=== PATIENT | female | born 1970 | race Two or more races ===

== ENCOUNTER 2024-12-27 16:14 | Inpatient (IN) | payer OTHER ==
[~2024-12-27] VITALS: Ht 165.1 cm; Wt 95.7 kg
--- NOTE | 2024-12-27 17:43 | ECG ---
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
[2024-12-27] MEDS: SODIUM CHLORIDE 0.9% 1,000 ML IV ONE ×2 (18:04→21:47)
[2024-12-27] MEDS: ONDANSETRON HCL 4 MG/2 ML VIAL IV ONE (18:08)
[2024-12-27 18:10] LABS: Basophils # (auto) 0 10 ^3/uL (0-0.2); Basophils % (auto) 0.4 % (0.0-2.0); Eosinophils # (auto) 0.4 10 ^3/uL (0-0.8); Eosinophils % (auto) 3.5 % (0.0-7.0); Hematocrit 47.1 % (36.0-46.0); Hemoglobin 15.5 g/dL (12.2-16.2); Lymphocytes # (auto) 2.8 10 ^3/uL (0.4-5.4); Lymphocytes % (auto) 26.4 % (10.0-50.0); Mean Corpuscular Hemoglobin 27.7 pg (28.0-32.0); Mean Corpuscular Hgb Conc. 32.8 g/dL (32.0-36.0); Mean Corpuscular Volume 84.3 fL (80.0-100.0); Monocytes # (auto) 1.3 10 ^3/uL (0-1.3); Neutrophils # (auto) 6.2 10 ^3/uL (1.6-8.6); Neutrophils % (auto) 57.7 % (37.0-80.0); Nucleated Red Blood Cells % 0.4 %; Platelet Count (auto) 212 10^3/uL (140-450); Red Blood Cells 5.59 10^6/uL (4.0-5.20); Red Cell Distribution Width 16.6 % (11.8-14.3); White Blood Cell 10.8 10^3/uL (4.4-10.8)
[2024-12-27 18:28] LABS: Alanine Aminotransferase 22 U/L (7-40); Albumin 4.4 g/dL (3.2-4.8); Alkaline Phosphatase 103 U/L (46-116); Anion Gap 19.00001 (5-15); Aspartate Aminotransferase 18 U/L (13-40); BUN/Creatinine Ratio 14.9 (10.0-20.0); Calcium 9.4 mg/dL (8.7-10.4); Chloride 105 mmol/L (98-107); Magnesium 2.5 mg/dL (1.6-2.6)
--- NOTE | 2024-12-27 18:28 | ED.PDOC ---
GI ASSESSMENT HPI Comments 54y F who presents to the ED for chief complaint of nausea and vomiting - pt has been having nausea, vomiting and diarrhea for the past 3 days. - pt states her vomiting has been yellow in color - pt states over the past 2 days, has noted no vomiting or diarrhea episodes - pt states she started to get body aches and chills and came to the ED for further evaluation - pt denies any recent sick contacts or recent travel -pt denies any other symptoms at this time PMH: denies PSH: denies meds: denies allergies: nkda social history: denies ETOH, denies tobacco use, denies drug use HPI: Poor Historian. REVIEW OF SYSTEMS: CONSTITUTIONAL: Denies acute: fever, diaphoresis, chills, HEAD: Denies acute: headache, photophobia Eyes: Denies acute: Double vision, vision loss, eye pain, eye discharge. EARS: Denies acute: tinnitus, hearing loss, ear discharge, ear pain, THROAT: Denies acute: sore throat, swelling, difficulty swallowing , pain with swallowing, change in voice. NECK: Denies acute: neck pain, neck swelling, stiff neck. HEART: Denies acute : chest pain, palpitations, LUNGS: Denies acute: SOB, wheezing, cough, hemoptysis ABDOMEN: Denies acute: abdominal pain, , melena , hematemesis, hematochezia SKIN: Denies acute: rash, redness, lesions, itchiness. EXTREMITIES: Denies acute: calf pain, numbness, tingling, weakness, denies pain in extremity. Denies acute: Low back pain. Neuro: Denies acute: focal neurological deficit, motor or sensory focal neurological deficit, tremors, seizure like activity, confusion, dizziness, change in mental status, loss of bowel or bladder function, cauda equina like symptoms. : Denies acute: dysuria, hematuria, flank pain, increase in urinary frequency. PSYCH: Denies acute: hallucination, suicidal ideation, homicidal ideation. FEMALE: Denies acute: abnormal vaginal bleeding, foul odor, unusual discharge. PHYSICAL EXAM: General: --zxaw-yu-zvbyvyux------acute distress, awake and alert. Head: normocephalic, atraumatic. Neck: supple, trachea is midline, no swelling. Throat: Normal phonation. Eyes:, no erythema, no purulent discharge, no proptosis, no icterus. Heart: regular rate, regular rhythm, no significant murmur appreciated. Lungs: no apparent respiratory distress, Able to speak in full sentences. No wheezing, no rhonchi, no crackles. No stridors Clear to auscultation bilaterally. Abdomen: non tender to palpation, non distended, soft, no guarding, no rebound, + bowel sounds. Obese Neuro: Awake, Alert, oriented to name, self, situation, follows commands GCS=15. Speech is normal. Skin: no petechia, no purpura, no cyanosis, non-pale, not jaundice. Lower extremities: --no - Pitting edema no deformity, no focal swelling, no calf TTP. Makes eye contact. moves all four extremities. Face: no apparent facial droop. No nystagmus. No nuchal rigidity, Kernig's sign, Brudzinski's sign, no meningeal signs. ED COURSE: Critical care note by Dr. Huntley: Total time spent at least 35 minutes NOT including time for procedures. Obtaining history, review of pertinent medical records, multiple reassessment, documentation, review of labs and radiological imaging, Time Seen by MD: 18:44 Primary Care Provider: OOA Reviewed Notes: Nurses Notes, Medications, Allergies Allergies: Coded Allergies: NO KNOWN ALLERGIES (Unverified , 12/27/24) Home Meds Reported Medications Omeprazole (Omeprazole Dr) 20 Mg Cap, 1 CAP PO BID 12/28/24 Cholecalciferol (Gnp Vitamin D) 1,000 Unit Tab, 1 TAB PO DAILY 12/28/24 Information Source: Patient Mode of Arrival: Ambulatory Was a procedure done? 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 Indication: Hypotension Room prepared for procedure: Yes Process Controls Technician performed hand hygien: Yes Maximal sterile barrier precau: Mask/Eye shield, Sterile gown, Cap, Sterlie gloves, Large sterlie drape Skin Preparation: Chlorhexidine gluconate Skin preparation completely dr: Yes Insertion site: Left, Internal jugular Central line catheter type: [id number] dialysis Number of lumens: 3 Central line exchanged over a: Yes Antiseptic ointment applied to: Yes Post Assessment: Chest X-Ray, Proper placement Informed consent obtained: Yes Risks/benefits/alt described: Yes Notes Performed by Dr. Cesilia Lynch with resident Dr. Fortune and Dr. Fulton GI differential Dx Differential Diagnosis: Bowel Obstruction, Constipation, Gastritis/PUD, Gastroenteritis, Hernia, Hepatitis, Inflammatory BD, Porphyria, Trauma intraabdominal, UTI, Dehydration, Diabetes/ DKA, Electrolyte Imbalance, Food Poisoning, Bacterial, Parasitic, Viral, Hypovolemia, Renal Failure, Ischemic Bowel, Anemia, Other X-Ray, Labs, Meds, VS Vital Signs Date Time Temp Pulse Resp B/P (MAP) Pulse Ox O2 Delivery O2 Flow Rate FiO2 12/27/24 22:53 57/38 12/27/24 22:41 85 22 57/38 (44) 98 12/27/24 20:00 83 22 80/45 (57) 99 12/27/24 19:46 97.7 92 16 97/41 (59) 99 97.7 12/27/24 19:46 92 16 99 Room Air* 0 21 12/27/24 19:00 86 17 84/57 (66) 95 12/27/24 17:50 Room Air* 0 21 12/27/24 17:50 97.8 89 16 102/61 (75) 95 97.8 12/27/24 17:42 97 12/27/24 16:43 98.2 99 24 93/68 (76) 100 98.2 75/42 (53) Lab Test 12/27/24 22:45 12/27/24 21:45 12/27/24 21:16 12/27/24 20:45 Range/Units Sodium Level 137 136-145 mmol/L Potassium Level 4.8 3.5-5.1 mmol/L Chloride Level 114 H 98-107 mmol/L Carbon Dioxide Level < 10 *L 20-31 mmol/L Anion Gap 13.02786 5-15 Blood Urea Nitrogen 93 #*H 9-23 mg/dL Creatinine 7.69 H 0.550-1.02 mg/dL Glomerular Filtration Rate Calc 6 >90 mL/min BUN/Creatinine Ratio 12.1 10.0-20.0 Serum Glucose 90 74-106 mg/dL Calcium Level 8.4 L 8.7-10.4 mg/dL Urine Color Brown H Yellow Urine Clarity Ex.turbid Clear Urine pH 6.0 5.0-9.0 Urine Specific [place] 1.014 1.001-1.035 Urine Protein 2+ H Negative Urine Ketones Negative Negative Urine Blood 2+ H Negative /uL Urine Nitrite Negative Negative Urine Bilirubin Negative Negative Urine Urobilinogen Normal Negative mg/dL Urine Leukocyte Esterase 3+ Negative /uL Urine RBC 208 0 - 4 /hpf Urine WBC Clumps Present None Seen /hpf Urine Microscopic WBC 4972 H 0-5 /HPF Urine Squamous Epithelial Cells Few <5 /hpf Urine Bacteria Few H None Seen /hpf Urine Creatinine 226.91 H 30.0-125.0 mg/dL Urine Sodium 68 40-220 mmol/L Urine Glucose Normal Normal mg/dL Urine Total Protein 289.4 H 1-14 mg/dL Blood Gas Specimen Type Arterial Blood Gas Sample Site Right radial Blood Gas Patient Temperature 37.0 Arterial Blood Date Drawn Arterial Blood pH 7.168 *L 7.350-7.450 Arterial Blood Partial Pressure CO2 19.5 *L 32.0-45.0 mmHg Arterial Blood Partial Pressure O2 118.7 H 83.0-108.0 mmHg Arterial Blood HCO3 6.9 L 21.0-28.0 mmol/L Arterial Blood Oxygen Saturation 97.7 94.0-98.0 % Arterial Blood Base Excess -19.6 L -2.0-3.0 mmol/L Arterial Blood Oxyhemoglobin 96.8 94.0-98.0 % Arterial Blood Carboxyhemoglobin 0.2 L 0.5-1.5 % Arterial Blood Methemoglobin 0.7 0.0-1.5 % Sree Test Yes Blood Gas Total Hemoglobin 13.00 12.0-16.0 g/dL Blood Gas Modality Room air FiO2 % 21.0 Blood Gas Critical Value Read Back Yes Blood Gas Notified Whom Zoran fortune md Blood Gas Notified Time Blood Gas Notified By Pierre sargent rrt Troponin I High Sensitivity 4 </=34 ng/L Test 12/27/24 19:19 12/27/24 18:00 12/27/24 17:55 12/27/24 17:28 Range/Units Sodium Level 137 134 L 136-145 mmol/L Potassium Level 4.9 5.0 3.5-5.1 mmol/L Chloride Level 109 H 105 98-107 mmol/L Carbon Dioxide Level < 10 *L < 10 *L 20-31 mmol/L Anion Gap 18.47589 H 19.45043 H 5-15 Blood Urea Nitrogen 126 *H 134 *H 9-23 mg/dL Creatinine 8.60 H 9.01 H 0.550-1.02 mg/dL Glomerular Filtration Rate Calc 5 5 >90 mL/min BUN/Creatinine Ratio 14.7 14.9 10.0-20.0 Serum Glucose 105 126 H 74-106 mg/dL Calcium Level 8.7 9.4 8.7-10.4 mg/dL Total Bilirubin 0.2 0.2 0.2-1.0 mg/dL Aspartate Amino Transferase (AST) 15 18 13-40 U/L Alanine Aminotransferase (ALT) 16 22 7-40 U/L Alkaline Phosphatase 86 103 46-116 U/L Troponin I High Sensitivity 4 3 L </=34 ng/L Total Protein 7.1 8.0 5.7-8.2 g/dL Albumin 3.7 4.4 3.2-4.8 g/dL Influenza Type A Antigen Negative Negative Influenza Type B Antigen Negative Negative SARS-CoV-2 Antigen (Rapid) Negative NEGATIVE White Blood Count 10.8 4.4-10.8 10^3/uL Red Blood Count 5.59 H 4.0-5.20 10^6/uL Hemoglobin 15.5 12.2-16.2 g/dL Hematocrit 47.1 H 36.0-46.0 % Mean Corpuscular Volume 84.3 80.0-100.0 fL Mean Corpuscular Hemoglobin 27.7 L 28.0-32.0 pg Mean Corpuscular Hemoglobin Concent 32.8 32.0-36.0 g/dL Red Cell Distribution Width 16.6 H 11.8-14.3 % Platelet Count 212 140-450 10^3/uL Mean Platelet Volume 8.8 6.9-10.8 fL Neutrophils (%) (Auto) 57.7 37.0-80.0 % Lymphocytes (%) (Auto) 26.4 10.0-50.0 % Monocytes (%) (Auto) 12.0 0.0-12.0 % Eosinophils (%) (Auto) 3.5 0.0-7.0 % Basophils (%) (Auto) 0.4 0.0-2.0 % Neutrophils # (Auto) 6.2 1.6-8.6 10 ^3/uL Lymphocytes # (Auto) 2.8 0.4-5.4 10 ^3/uL Monocytes # (Auto) 1.3 0-1.3 10 ^3/uL Eosinophils # (Auto) 0.4 0-0.8 10 ^3/uL Basophils # (Auto) 0 0-0.2 10 ^3/uL Nucleated Red Blood Cells 0.4 % Lactic Acid Level 0.9 0.4-2.0 mmol/L Magnesium Level 2.5 1.6-2.6 mg/dL B-Type Natriuretic Peptide 9.41 0-100 pg/mL POC Glucose 125 H 70-106 mg/dl Microbiology Date/Time Source Procedure Growth Status 12/27/24 17:55 Blood Blood Culture - Preliminary NO GROWTH AFTER 24 HOURS OF INCUBATION. Resulted 12/27/24 17:40 Blood Blood Culture - Preliminary NO GROWTH AFTER 24 HOURS OF INCUBATION. Resulted Current Medications Medications (Trade) Dose Ordered Sig/Gaurav Route Start Time Stop Time Status Last Admin Norepinephrine Bitartrate 250 ml @ 3.75 mls/hr Q24H IV 12/27/24 22:45 12/28/24 11:24 DC 12/28/24 05:53 [place] [id number] Ph: [phone] DIAGNOSTIC IMAGING Diagnostic Imaging Report : [id number] Signed PATIENT: DARLING HANCT: [id number] UNIT: [id number] : 1970 LOC: ER ROOM / BED: / AGE / SEX: 54 / F ADM STATUS: REG ER SERVICE 8401 ORDERING PHYSICIAN: VERONICA HUNTLEY DO PROCEDURE(s): CXRP - CHEST PORTABLE REASON: hypotensive, n/v/d bodyaches ORDER NUMBER(s): [id number], ACCESSION NUMBER(s): [id number] CHEST RADIOGRAPH Indication: hypotensive, n/v/d bodyaches Technique: Single frontal view of the chest was obtained Comparison: None FINDINGS: Lungs are hypoventilatory but there are no infiltrates or effusions pulmonary vasculature normal. Heart is normal size but there is a widened mediastinum possibly due to mediastinal lipomatosis. IMPRESSION: 1. Widened mediastinum. Follow-up CT examination of the chest may be appropriate ATED BY: JACKSON IGNACIO MD DICTATED DATE/TIME: 12/27/241835 SIGNED BY: JACKSON IGNACIO MD SIGNED DATE/TIME: 12/27/241835 CC: Time of 1ST Reevaluation: 01:46 Reevaluation 1ST: Worsened Patient Education/Counseling: Diagnosis, Treatment Family Education/Counseling: No Family Present Comments Patient presented with the above HPI.--nausea vomiting and hypotension----workup was initiated. patient was found with the above mentioned diagnosis. the following medications were ordered: please refer to order lists of meds and tests obtained by myself Dr. Huntley. Patient ED course and VS have been stabilized. Patient has been reassessed in the ED and remained in a stable condition. Pertinent incidental findings were discussed with the patient and/or family. Patient/family voices understanding and is agreeable with plan. Patient has been observed in the ED adequate length of time to insure improvement/stability. Escalation of care considered: Consideration of escalation to observation or admission Patient was given multiple fluid boluses. Repeat BMP shows improvement of her creatinine. Nephrology was consulted. Patient was ADMITTED to the medicine team for further evaluation and treatment of their presentation. Patient was given antibiotics Flagyl for reported history of diarrhea. She was unable to provide us with a stool sample. All the reports of any imaging studies that were ordered by myself were reviewed by myself. Departure 1 Departure Time of Disposition: :46 (I, Dr. Lynch, was called to patient's bedside as patient was decompensating. Patient had with the acute renal failure secondary to staghorn calculi. Patient was empirically given fluids and antibiotics. Patient was started on vasopressors and I place a central line with the residents. Patient to be admitted to the ICU) Impression: Primary Impression: Acute renal failure Qualified Codes: N17.9 - Acute kidney failure, unspecified Additional Impression: Dehydration Disposition: ADMITTED INPATIENT Admit to: ICU Condition: Critical Discharged With: Self Critical Care Note Critical Care Time?: Yes Critical care comment: Acute renal failure Authorized and Performed by: Cesilia Lynch MD Total critical care time: Approximately 39 minutes Due to a high probability of clinically significant, life threatening de terioration, the patient required my highest level of preparedness to intervene emergently and I personally spent this critical care time directly and personally managing the patient. This critical care time included obtaining a history; examining the patient; pulse oximetry; ordering and review of studies; arranging urgent treatment with development of a management plan; evaluation of patient's response to treatment; frequent reassessment; and, discussions with other providers. This critical care time was performed to assess and manage the high probability of imminent, life-threatening deterioration that could result in multi-organ failure. It was exclusive of separately billable procedures and treating other patients and teaching time. Please see my other sections and the rest of the note for further information on patient assessment and treatment. I personally scribed for VERONICA HUNTLEY DO ([email or web address]) on 12/27/24 at 18:28. Electronically submitted by Bishnu Rivas ([email or web address]). I personally scribed for VERONICA HUNTLEY DO ([email or web address]) on 12/27/24 at 18:44. Electronically submitted by Bishnu Rivas ([email or web address]). I personally scribed for VERONICA HUNTLEY DO ([email or web address]) on 12/27/24 at 18:49. Electronically submitted by Bishnu Rivas ([email or web address]). VERONICA HUNTLEY DO December 27, 2024 18:28 CESILIA LYNCH MD December 28, 2024 01:48
[2024-12-27 18:30] LABS: Bilirubin, Total 0.2 mg/dL (0.2-1.0); Glucose 126 mg/dL (74-106); Sodium 134 mmol/L (136-145)
[2024-12-27 18:32] LABS: Blood Urea Nitrogen 134 mg/dL (9-23); Carbon Dioxide < 10 mmol/L (20-31)
--- NOTE | 2024-12-27 18:38 | DVH ---
CHEST RADIOGRAPH Indication: hypotensive, n/v/d bodyaches Technique: Single frontal view of the chest was obtained Comparison: None FINDINGS: Lungs are hypoventilatory but there are no infiltrates or effusions pulmonary vasculature normal. Hea rt is normal size but there is a widened mediastinum possibly due to mediastinal lipomatosis. IMPRESSION: 1. Widened mediastinum. Follow-up CT examination of the chest may be appropriate
[2024-12-27 18:41] LABS: COVID19 ANTIGEN SOFIA FIA NEGATIVE (NEGATIVE); Rapid Influenza A Negative (Negative); Rapid Influenza B Negative (Negative)
[2024-12-27] MEDS ORDERED: SODIUM CHLORIDE 0.9% 1,000 ML IV ONE (18:45)
[2024-12-27] MEDS ORDERED: SODIUM BICARB 8.4% 50Meq/50ml SYR Vial IV ONE (19:30)
[2024-12-27 19:46] VITALS: PULSE 92; RESP 16; O2SAT 99
[2024-12-27 20:19] LABS: Alanine Aminotransferase 16 U/L (7-40); Albumin 3.7 g/dL (3.2-4.8); Alkaline Phosphatase 86 U/L (46-116); Anion Gap 18.00001 (5-15); Aspartate Aminotransferase 15 U/L (13-40); BUN/Creatinine Ratio 14.7 (10.0-20.0); Calcium 8.7 mg/dL (8.7-10.4); Glucose 105 mg/dL (74-106); Potassium 4.9 mmol/L (3.5-5.1); Sodium 137 mmol/L (136-145); Total Protein 7.1 g/dL (5.7-8.2)
[2024-12-27 20:20] LABS: Chloride 109 mmol/L (98-107)
[2024-12-27 20:25] LABS: Bilirubin, Total 0.2 mg/dL (0.2-1.0); Blood Urea Nitrogen 126 mg/dL (9-23); Carbon Dioxide < 10 mmol/L (20-31)
--- NOTE | 2024-12-27 20:25 | DVH ---
INDICATION: vicki TECHNIQUE: Multiple real-time sonographic images of the kidneys and bladder were obtained. COMPARISON: None FINDINGS: The right kidney measures 9.1 cm in length, which is normal in size. There is normal echoge nicity of the right kidney. No hydronephrosis. Multiple calculi are noted in the right kidney no hydr onephrosis The left kidney measures 11.3 cm in length, which is normal in size. There is normal echogenicity of the left kidney. Multiple calculi are noted in the left kidney no hydronephrosis No large intraluminal masses are seen in the bladder. Prior to voiding the bladder volume measures vo lume 23 cc. Patient had no urge to void. IMPRESSION: 1. Multiple bilateral renal calculi no hydronephrosis. Consider CT abdomen and pelvis for further tal luation. 2. Echogenic avascular structure noted in the bladder with twinkle artifact. 3. Gallstones noted in the gallbladder
[2024-12-27] MEDS: metroNIDAZOLE 500MG/100ML 100 ML IV ONE (20:37)
--- NOTE | 2024-12-27 21:05 | DVH ---
Exam: CT CT AB PEL WO CON-NO ORAL OR IV History: hypotensive, n/v/d bodyaches Comparison Study: None available at time of dictation. TECHNIQUE: Multidetector CT of the abdomen was performed from lung bases to pubic symphysis. Imaging was performed without IV contrast. Axial, coronal and sagittal multiplanar reformats were obtained fr om the axial data set by the technologist. Radiation Dose Information: CT Dose: CTDI volume is 22.49 mGy. Dose-length product is 1395.23 mGy*cm FINDINGS: Evaluation of solid organs is limited due to lack of intravenous contrast use. Findings: Lung Bases: No acute or significant lung base finding. Normal heart size. No pleural or pericardial effusion. Liver: The liver is normal in size. No focal lesions. Gallbladder and Biliary Tree: Unremarkable Spleen: Unremarkable Pancreas: The pancreas is grossly normal in appearance. Adrenal Glands: Unremarkable Kidneys: Bilateral staghorn calculi. Double-J ureteral stent in place on the right. Proximal stent ap pears to be in place in the pelvis or proximal ureter. No hydronephrosis bilaterally. Correlate with renal function tests. Bladder: Grossly unremarkable for degree of distention. Bowel: The stomach is grossly normal in appearance. Small bowel and colon are normal in caliber and d istribution. The appendix is not visualized; however, no secondary findings of acute appendicitis id entified. Ascites: Absent Lymphadenopathy: No mesenteric, retroperitoneal or periportal lymphadenopathy. Abdominal Wall and Mesentery: Unremarkable. Vasculature: The visualized abdominal aorta is normal in size and caliber. Evaluation of abdominal a nd pelvic vessels is limited due to lack of intravenous contrast. Pelvic Organs: Unremarkable Musculoskeletal: No aggressive focal bony lesions, acute fractures or dislocation. Soft tissues: Unremarkable IMPRESSION: 1. Dense bilateral renal calculi without hydronephrosis. 2. Right ureteral stent in place. The proximal pigtail appears to be in the proximal ureter and ther e is no dilatation of the right renal pelvis. Correlate with renal function studies. Patient may be i n renal failure. 3. Cholelithiasis Radiation optimization: All CT scans at this facility use at least one of these dose optimization te chniques: automated exposure control mA and/or kV adjustment per patient size (includes targeted exa ms where dose is matched to clinical indication) or iterative reconstruction.
[2024-12-27 21:34] LABS: Base Excess -19.6 mmol/L (-2.0-3.0)
[2024-12-27 22:08] LABS: Creatinine, Urine 226.91 mg/dL (30.0-125.0)
[2024-12-27] MEDS: SODIUM BICARB 50mEq/50ml Vial 150 ML in D5W 5% 1,000 ML IV ONE (22:12)
[2024-12-27 22:22] LABS: Protein, Urine 289.4 mg/dL (1-14)
[2024-12-27 22:24] LABS: Urine Bacteria FEW /hpf (None Seen); Urine Blood 2+ /uL (Negative); Urine Clarity Ex.Turbid (Clear); Urine Color Brown (Yellow); Urine Protein, UAD 2+ (Negative); Urine Specific Gravity 1.014 (1.001-1.035); Urine Squamous Epithelial Cell FEW /hpf (<5); Urine Urobilinogen Normal (Negative); Urine WBC 4972 /HPF (0-5); Urine WBC Clumps PRESENT /hpf (None Seen)
[2024-12-27] MEDS: NOREPINEPHRINE 8 MG/250ML KIT 250 ML IV ONE (22:46)
[2024-12-27] MEDS: NOREPINEPHRINE 8 MG/250ML KIT 250 ML IV SCH (22:53)
--- NOTE | 2024-12-27 23:00 | DVHHPRES ---
History of Present Illness Resident Creating Document: ROBIN MCNAMARA RESIDENT History of Present Illness Mr. Hearn is 54-year-old female with no relevant PMH/PSH who presented to the ER with a chief complaint of intractable nausea, vomiting and diarrhea for the past 2 days. Patient reports progressively worsening nausea, vomiting and diarrhea for the past 3 days and she has been unable to eat or drink anything. she can not keep liquid or solid food down. Patient denies any abdominal pain, flank pain, dysuria, hematuria. She reports that her urine output is decreased but she thought it was because she is not drinking much fluids. Patient is A&O x3 but is confused as she is asking same questions repeatedly On arrival to the ER, patient's blood pressure was 84/57, pulse 99, respiratory rate 24, saturating 95 on room air CBC unremarkable, CMP showed anion gap 17, BUN 134, creatinine 9, serum bicarb less than 10 ABGs completed, showed pH 7.16, pCO2 19, bicarb 6.9 Kidney ultrasound showed bilateral renal calculi. Echogenic avascular structure in bladder. Gallstones. CT abdomen pending. Chest x-ray showed widened mediastinum. Patient received 2 L in his bolus. Blood pressure is still in 70 systolic, trending down. IV Levophed drip ordered. Patient has been admitted to ICU PMH/PSH: None Home medications: None Social history: Lives with , denies smoking/drinking/illicit drug use Family history: Sister has diabetes. No history of hemodialysis and family Patient seen and examined at the bedside. Smoke: No ALCOHOL: none Drugs: None Lives: with Family Review of Systems Gastrointestinal: Nausea, Vomiting, Abdominal Pain Neurological: Confusion Allergies: Coded Allergies: NO KNOWN ALLERGIES (Unverified , 12/27/24) Medications Current Medications Medications Dose Ordered Sig/Gaurav Route Start Time Stop Time Status Last Admin Dose Admin Norepinephrine Bitartrate 250 ml @ 3.75 mls/hr Q24H IV 12/27/24 22:45 12/27/24 22:53 3.75 MLS/HR Exam Vital Signs Vital Signs Date Time Temp Pulse Resp B/P (MAP) Pulse Ox O2 Delivery O2 Flow Rate FiO2 12/27/24 22:53 57/38 12/27/24 19:00 86 17 95 12/27/24 17:50 Room Air* 0 21 12/27/24 17:50 97.8 97.8 Exam Patient lying in bed, in no acute distress General: Well-built, afebrile, palor, mucosae are moist Cardiovascular: Regular S1 and S2. No murmurs, gallops or rubs. No JVD elevation. No pedal edema Respiratory: Normal B/L air entry on room air. Clear lung sounds on auscultation Abdomen: Soft, nontender, nondistended, normoactive bowel sounds, no rebound tenderness, no organomegaly, no masses Genitourinary: Deferred MSK/skin: Mobilizes 4 limbs. Skin is dry and warm Neurological: No motor, no sensitive deficits, normal speech. Pupils are isocoric and reactive. Psych/Mental Status: A/Ox3 but appears confused, asking repeatedly the same questions Labs/Xrays Labs Test 12/27/24 22:45 12/27/24 21:45 12/27/24 21:16 12/27/24 20:45 Range/Units Urine Color Brown H Yellow Urine Clarity Ex.turbid Clear Urine pH 6.0 5.0-9.0 Urine Specific [place] 1.014 1.001-1.035 Urine Protein 2+ H Negative Urine Ketones Negative Negative Urine Blood 2+ H Negative /uL Urine Nitrite Negative Negative Urine Bilirubin Negative Negative Urine Urobilinogen Normal Negative mg/dL Urine Leukocyte Esterase 3+ Negative /uL Urine RBC 208 0 - 4 /hpf Urine WBC Clumps Present None Seen /hpf Urine Microscopic WBC 4972 H 0-5 /HPF Urine Squamous Epithelial Cells Few <5 /hpf Urine Bacteria Few H None Seen /hpf Urine Creatinine 226.91 H 30.0-125.0 mg/dL Urine Sodium 68 40-220 mmol/L Urine Glucose Normal Normal mg/dL Urine Total Protein 289.4 H 1-14 mg/dL Blood Gas Specimen Type Arterial Blood Gas Sample Site Right radial Blood Gas Patient Temperature 37.0 Arterial Blood Date Drawn Arterial Blood pH 7.168 *L 7.350-7.450 Arterial Blood Partial Pressure CO2 19.5 *L 32.0-45.0 mmHg Arterial Blood Partial Pressure O2 118.7 H 83.0-108.0 mmHg Arterial Blood HCO3 6.9 L 21.0-28.0 mmol/L Arterial Blood Oxygen Saturation 97.7 94.0-98.0 % Arterial Blood Base Excess -19.6 L -2.0-3.0 mmol/L Arterial Blood Oxyhemoglobin 96.8 94.0-98.0 % Arterial Blood Carboxyhemoglobin 0.2 L 0.5-1.5 % Arterial Blood Methemoglobin 0.7 0.0-1.5 % Sree Test Yes Blood Gas Total Hemoglobin 13.00 12.0-16.0 g/dL Blood Gas Modality Room air FiO2 % 21.0 Blood Gas Critical Value Read Back Yes Blood Gas Notified Whom Zoran paniagua md Blood Gas Notified Time Blood Gas Notified By Pierre sargent rrt Troponin I High Sensitivity 4 </=34 ng/L Test 12/27/24 19:19 12/27/24 18:00 12/27/24 17:55 12/27/24 17:28 Range/Units Total Bilirubin 0.2 0.2-1.0 mg/dL Aspartate Amino Transferase (AST) 15 13-40 U/L Alanine Aminotransferase (ALT) 16 7-40 U/L Alkaline Phosphatase 86 46-116 U/L Total Protein 7.1 5.7-8.2 g/dL Albumin 3.7 3.2-4.8 g/dL Influenza Type A Antigen Negative Negative Influenza Type B Antigen Negative Negative SARS-CoV-2 Antigen (Rapid) Negative NEGATIVE White Blood Count 10.8 4.4-10.8 10^3/uL Red Blood Count 5.59 H 4.0-5.20 10^6/uL Hemoglobin 15.5 12.2-16.2 g/dL Hematocrit 47.1 H 36.0-46.0 % Mean Corpuscular Volume 84.3 80.0-100.0 fL Mean Corpuscular Hemoglobin 27.7 L 28.0-32.0 pg Mean Corpuscular Hemoglobin Concent 32.8 32.0-36.0 g/dL Red Cell Distribution Width 16.6 H 11.8-14.3 % Platelet Count 212 140-450 10^3/uL Mean Platelet Volume 8.8 6.9-10.8 fL Neutrophils (%) (Auto) 57.7 37.0-80.0 % Lymphocytes (%) (Auto) 26.4 10.0-50.0 % Monocytes (%) (Auto) 12.0 0.0-12.0 % Eosinophils (%) (Auto) 3.5 0.0-7.0 % Basophils (%) (Auto) 0.4 0.0-2.0 % Neutrophils # (Auto) 6.2 1.6-8.6 10 ^3/uL Lymphocytes # (Auto) 2.8 0.4-5.4 10 ^3/uL Monocytes # (Auto) 1.3 0-1.3 10 ^3/uL Eosinophils # (Auto) 0.4 0-0.8 10 ^3/uL Basophils # (Auto) 0 0-0.2 10 ^3/uL Nucleated Red Blood Cells 0.4 % Lactic Acid Level 0.9 0.4-2.0 mmol/L Magnesium Level 2.5 1.6-2.6 mg/dL B-Type Natriuretic Peptide 9.41 0-100 pg/mL POC Glucose 125 H 70-106 mg/dl Assessment/Plan Assessment/Plan Hypovolemic shock requiring pressor support Probable uremic encephalopathy Acute renal failure, hemodynamically mediated Anion gap metabolic acidosis secondary to uremia Bilateral nephrolithiasis Acute cystitis secondary to ? Staghorn calculi ? Right ureteral stent Gastroenteritis, likely infectious Hyponatremia Cholelithiasis Plan: 2 L IV NS bolus administered, patient is still hypotensive, IV Levophed drip started FENA 1.9% intermediate, follow up with urine and serum osmolality UA shows 2+ blood, 2+ protein, 3+ leukocyte esterase, WBC clumps, few bacteria Nephrology consulted Kidney ultrasound showed bilateral renal calculi. Echogenic avascular structure in bladder. Gallstones. CT abdomen pending. Chest x-ray showed widened mediastinum. CT abdomen showed Dense bilateral renal calculi without hydronephrosis. Right ureteral stent in place. The proximal pigtail appears to be in the proximal ureter and there is no dilatation of the right renal pelvis. Correlate with renal function studies. Patient may be in renal failure.Cholelithiasis ABGs completed, showed pH 7.16, pCO2 19, bicarb 6.9 IV ceftriaxone and IV metronidazole Stool studies and C diff pending Tamsulosin 0.4 mg daily Chest x-ray shows widened mediastinum consider chest CT scan with IV contrast Pantoprazole 40 mg IV daily Lovenox 40 mg sc daily Patient has left IJ CVC placed on 12/28 Patient admitted to ICU Plan discussed with patient in which all questions have been answered Goals of care discussed for more than 28 minutes, full code status Case discussed with Dr. Castaneda Plan discussed with: Patient My Orders Orders - ROBIN MCNAMARA Procedure Category Date Status Time Norepinephrine 8 PHA 12/27/24 In Process Mg/250ml Kit 22:45 Date of Service: December 27, 2024 Billing Provider: ALMA CASTANEDA MD Common Visit Codes: [id number] INP/OBS CARE (HIGH) ROBIN MCNAMARA December 27, 2024 23:00
[2024-12-27 23:36] LABS: Potassium 4.8 mmol/L (3.5-5.1); Sodium 137 mmol/L (136-145)
[2024-12-27 23:38] LABS: Anion Gap 13.00001 (5-15); Chloride 114 mmol/L (98-107)
[2024-12-27 23:39] LABS: Carbon Dioxide < 10 mmol/L (20-31)
[2024-12-27 23:40] LABS: Calcium 8.4 mg/dL (8.7-10.4)
[2024-12-27 23:43] LABS: BUN/Creatinine Ratio 12.1 (10.0-20.0); Glucose 90 mg/dL (74-106)
[2024-12-27 23:46] LABS: Blood Urea Nitrogen 93 mg/dL (9-23)
[2024-12-28] VITALS (84 sets, daily range): BP systolic 79–126; BP diastolic 32–93; PULSE 68–108; RESP 12–29; TEMP 98–98.7; O2SAT 97–100
[2024-12-28 00:52] LABS: Partial Thromboplastin Time 25.4 SEC (24.5-34.5); Prothrombin Time 10.6 sec (9.3-11.8)
[2024-12-28 01:15] LABS: Magnesium 2.2 mg/dL (1.6-2.6)
[2024-12-28 01:20] LABS: Phosphorus 6.6 mg/dL (2.4-5.1)
[2024-12-28] MEDS: TAMSULOSIN HYDROCHLORIDE 0.4 MG CAP PO ONE (02:19)
[2024-12-28] MEDS: PANTOPRAZOLE 40 MG/10 ML VIAL INJ IV ONE (02:33)
--- NOTE | 2024-12-28 03:18 | DVH ---
CHEST RADIOGRAPH Indication: status post central line placement Technique: Single frontal view of the chest was obtained Comparison: XY CHEST PORTABLE on DOS: 12/27/24 IMPRESSION: Left central venous catheter tip in the region of the superior vena cava. The lungs appear clear wit hout focal airspace opacity, effusion, or pneumothorax.
[2024-12-28] MEDS: cefTRIAXone 1GM/50ML D5W 50 ML IV ONE (03:33)
[2024-12-28] MEDS ORDERED: OMEP1CAP70 PO (03:44)
[2024-12-28] MEDS ORDERED: CHOL1TAB30 PO (03:44)
[2024-12-28] MEDS: metroNIDAZOLE 500MG/100ML 100 ML IV ONE (04:15)
[2024-12-28 05:10] LABS: Base Excess -18.9 mmol/L (-2.0-3.0)
[2024-12-28] MEDS: metroNIDAZOLE 500MG/100ML 100 ML IV SCH (05:59)
[2024-12-28] MEDS: SODIUM BICARB 8.4% 50Meq/50ml SYR Vial IV ONE (06:04)
[2024-12-28] MEDS: SODIUM CHLORIDE 0.9% 500 ML IV ONE (07:30)
[2024-12-28] MEDS: PHENYLEPHRINE IV 250 ML IV SCH (08:00)
[2024-12-28] MEDS: PHENYLEPHRINE IV 250 ML IV ONE (08:21)
[2024-12-28] MEDS: cefTRIAXone 1GM/50ML D5W 50 ML IV SCH (08:21)
[2024-12-28 09:34] LABS: Basophils # (auto) 0 10 ^3/uL (0-0.2); Basophils % (auto) 0.3 % (0.0-2.0); Eosinophils # (auto) 0.5 10 ^3/uL (0-0.8); Eosinophils % (auto) 5.3 % (0.0-7.0); Hematocrit 38.7 % (36.0-46.0); Hemoglobin 12.7 g/dL (12.2-16.2); Lymphocytes # (auto) 1.7 10 ^3/uL (0.4-5.4); Lymphocytes % (auto) 20.4 % (10.0-50.0); Mean Corpuscular Hemoglobin 27.2 pg (28.0-32.0); Mean Corpuscular Hgb Conc. 32.9 g/dL (32.0-36.0); Mean Corpuscular Volume 82.8 fL (80.0-100.0); Monocytes % (auto) 11.7 % (0.0-12.0); Neutrophils # (auto) 5.3 10 ^3/uL (1.6-8.6); Neutrophils % (auto) 62.3 % (37.0-80.0); Nucleated Red Blood Cells % 0.1 %; Platelet Count (auto) 169 10^3/uL (140-450); Red Blood Cells 4.67 10^6/uL (4.0-5.20); Red Cell Distribution Width 15.8 % (11.8-14.3); White Blood Cell 8.5 10^3/uL (4.4-10.8)
[2024-12-28 09:59] LABS: Alanine Aminotransferase 11 U/L (7-40); Albumin 3.4 g/dL (3.2-4.8); Alkaline Phosphatase 72 U/L (46-116); Anion Gap 17 (5-15); BUN/Creatinine Ratio 14.6 (10.0-20.0); Sodium 141 mmol/L (136-145); Total Protein 6.5 g/dL (5.7-8.2)
[2024-12-28 10:01] LABS: Aspartate Aminotransferase 9 U/L (13-40); Bilirubin, Total 0.3 mg/dL (0.2-1.0); Calcium 8.3 mg/dL (8.7-10.4); Carbon Dioxide 11 mmol/L (20-31); Chloride 113 mmol/L (98-107); Glucose 227 mg/dL (74-106)
[2024-12-28 10:05] LABS: Blood Urea Nitrogen 100 mg/dL (9-23)
[2024-12-28] MEDS: ENOXAPARIN SOD 40 MG/0.4 ML SYRINGE SC SCH (10:49)
[2024-12-28] MEDS: SODIUM BICARB 50mEq/50ml Vial 150 ML in D5W 5% 1,000 ML IV ONE (10:50)
[2024-12-28] MEDS: PANTOPRAZOLE 40 MG/10 ML VIAL INJ IV SCH (10:50)
[2024-12-28] MEDS: NOREPINEPHRINE BITARTRATE 32 MG in SODIUM CHL 0.9% 218 ML IV SCH (12:30)
--- NOTE | 2024-12-28 14:02 | DVHCONRES ---
Date Seen: December 28, 2024 Resident Creating Document: SABA TITUS RESIDENT Referring Physician Reason for Consultation ISIDRO History of Present Illness 64-year-old female patient with past medical history of staghorn calculi, H pylori (3 months ago), type 2 obesity, prediabetes, tuberculosis, recurrent UTIs who presented to the emergency department with a chief complaint of nausea vomiting and diarrhea for the past 2 days, she also had an episode of diarrhea 2 weeks ago. Nephrology was consulted because of an acute episode of ISIDRO, further evaluation demonstrated presence of bilateral staghorn calculi on CT scan and the presence of right ureteral stent with the proximal pigtail appears to be in the proximal ureter and there is no dilation of the right renal pelvis, patient has a lithotripsy intervention for years ago. During her stay in the ED she presented a possible episode of urinary retention as she reports noted to had a good amount of urine passage after Marie catheterization, this detail to be considered on discharge regarding the consideration of continuing Marie catheter. Patient was started on fluids D5W 5% dextrose with sodium bicarbonate at 100 mL/hour for 1 more day or 2 as metabolic acidosis improve. urology lesion was ordered further management on the bilateral staghorn calculi. We are going to continue monitoring kidney function, metabolic acidosis, urine output. Past Medical History staghorn calculi, H pylori (3 months ago), type 2 obesity, prediabetes, tuberculosis, recurrent UTIs Family History: Diabetes mellitus (DAD AND SISTER) G8 FATHER G8 SISTER Allergies: Coded Allergies: NO KNOWN ALLERGIES (Unverified , 12/27/24) Home Meds Reported Medications Omeprazole (Omeprazole Dr) 20 Mg Cap, 1 CAP PO BID 12/28/24 Cholecalciferol (Gnp Vitamin D) 1,000 Unit Tab, 1 TAB PO DAILY 12/28/24 Current Medications Current Medications Medications (Trade) Dose Ordered Sig/Gaurav Route PRN Reason Start Time Stop Time Status Last Admin Norepinephrine Bitartrate 250 ml @ 3.75 mls/hr Q24H IV 12/27/24 22:45 12/28/24 11:24 DC 12/28/24 05:53 Ceftriaxone Sodium 50 ml @ 100 mls/hr DAILY@09 IV 12/28/24 09:00 12/28/24 08:21 Metronidazole 100 ml @ 100 mls/hr Q8HR IV 12/28/24 06:00 12/28/24 05:59 Tamsulosin HCl (Flomax) 0.4 mg QPM PO 12/28/24 18:00 12/28/24 12:08 DC Pantoprazole Sodium (Protonix) 40 mg DAILY IV 12/28/24 10:00 12/28/24 10:50 Enoxaparin Sodium (Lovenox) 40 mg DAILY SC 12/28/24 10:00 12/28/24 10:49 Phenylephrine HCl 250 ml @ 30 mls/hr Q8H20M IV 12/28/24 07:45 12/28/24 12:30 Norepinephrine Bitartrate 32 mg/ Sodium Chloride 250 ml @ 0.938 mls/ hr Q24H IV 12/28/24 11:30 12/28/24 12:30 Sodium Bicarbonate 150 ml/Dextrose 1,150 ml @ 100 mls/hr [id number] IV 12/28/24 22:15 Review of Systems Constitutional: No: Fever, Chills, Sweats, Weakness, Malaise, Other Eyes: No: Pain, Vision change, Conjunctivae inflammation, Eyelid inflammation, Other, Redness ENT: No: Ear pain, Ear discharge, Nose pain, Nose discharge, Nose congestion, Mouth pain, Mouth swelling, Throat pain, Throat swelling, Other Respiratory: No Wheezing, Hemoptysis, Pleuritic Pain, Sputum, Wheezing, Other Cardiovascular: No: Chest Pain, Palpitations, Orthopnea, Paroxysmal Noc. Dyspnea, Edema, Lt Headedness, Other Gastrointestinal: No: Nausea, Vomiting, Abdominal Pain, Diarrhea, Constipation, Melena, Hematochezia, Other Musculoskeletal: No: other, neck pain, shoulder pain, arm pain, back pain, hand pain, leg pain, foot pain Neurological:; No: Weakness, Numbness, Incoordination, Change in speech, Confusion, Seizures Vital Signs Vital Signs Date Time Temp Pulse Resp B/P (MAP) Pulse Ox O2 Delivery O2 Flow Rate FiO2 12/28/24 12:30 96/59 12/28/24 12:30 96 21 99 12/28/24 12:00 98.3 98.3 12/28/24 08:00 Nasal Cannula* 2 28 Physical Exam Examination General Appearance: Alert, Oriented X3, Cooperative, No acute distress Respiratory: Clear to auscultation, Normal air movement Cardiovascular: Regular rate, Normal S1, Normal S2 Abdominal: Normal bowel sounds Extremities: No cyanosis, No edema, Normal pulses, No tenderness/swelling Skin: No rashes, No breakdown Neuro: Normal gait, Normal speech, Strength at 5/5 X4 ext, Normal tone, Sensation intact, Cranial nerves 3-12 NL, Reflexes 2+ Psych/Mental Status: Mental status NL, Mood NL Labs/Diagnostic Data Labs Test 12/28/24 09:19 12/28/24 04:55 12/27/24 23:57 12/27/24 21:45 Range/Units White Blood Count 8.5 4.4-10.8 10^3/uL Red Blood Count 4.67 4.0-5.20 10^6/uL Hemoglobin 12.7 # 12.2-16.2 g/dL Hematocrit 38.7 # 36.0-46.0 % Mean Corpuscular Volume 82.8 80.0-100.0 fL Mean Corpuscular Hemoglobin 27.2 L 28.0-32.0 pg Mean Corpuscular Hemoglobin Concent 32.9 32.0-36.0 g/dL Red Cell Distribution Width 15.8 H 11.8-14.3 % Platelet Count 169 140-450 10^3/uL Mean Platelet Volume 8.6 6.9-10.8 fL Neutrophils (%) (Auto) 62.3 37.0-80.0 % Lymphocytes (%) (Auto) 20.4 10.0-50.0 % Monocytes (%) (Auto) 11.7 0.0-12.0 % Eosinophils (%) (Auto) 5.3 0.0-7.0 % Basophils (%) (Auto) 0.3 0.0-2.0 % Neutrophils # (Auto) 5.3 1.6-8.6 10 ^3/uL Lymphocytes # (Auto) 1.7 0.4-5.4 10 ^3/uL Monocytes # (Auto) 1.0 0-1.3 10 ^3/uL Eosinophils # (Auto) 0.5 0-0.8 10 ^3/uL Basophils # (Auto) 0 0-0.2 10 ^3/uL Nucleated Red Blood Cells 0.1 % Sodium Level 141 136-145 mmol/L Potassium Level 4.0 3.5-5.1 mmol/L Chloride Level 113 H 98-107 mmol/L Carbon Dioxide Level 11 L 20-31 mmol/L Anion Gap 17 H 5-15 Blood Urea Nitrogen 100 *H 9-23 mg/dL Creatinine 6.84 H 0.550-1.02 mg/dL Glomerular Filtration Rate Calc 7 >90 mL/min BUN/Creatinine Ratio 14.6 10.0-20.0 Serum Glucose 227 H 74-106 mg/dL Calcium Level 8.3 L 8.7-10.4 mg/dL Magnesium Level 2.0 1.6-2.6 mg/dL Total Bilirubin 0.3 0.2-1.0 mg/dL Aspartate Amino Transferase (AST) 9 L 13-40 U/L Alanine Aminotransferase (ALT) 11 7-40 U/L Alkaline Phosphatase 72 46-116 U/L Total Protein 6.5 5.7-8.2 g/dL Albumin 3.4 3.2-4.8 g/dL Free Thyroxine (T4) Calculated 1.07 0.89-1.76 ng/dL Blood Gas Specimen Type Arterial Blood Gas Sample Site Right radial Blood Gas Patient Temperature 37.0 Arterial Blood Date Drawn [id number] Arterial Blood pH 7.186 *L 7.350-7.450 Arterial Blood Partial Pressure CO2 19.6 *L 32.0-45.0 mmHg Arterial Blood Partial Pressure O2 108.5 H 83.0-108.0 mmHg Arterial Blood HCO3 7.3 L 21.0-28.0 mmol/L Arterial Blood Oxygen Saturation 97.2 94.0-98.0 % Arterial Blood Base Excess -18.9 L -2.0-3.0 mmol/L Arterial Blood Oxyhemoglobin 96.3 94.0-98.0 % Arterial Blood Carboxyhemoglobin 0.2 L 0.5-1.5 % Arterial Blood Methemoglobin 0.7 0.0-1.5 % Sree Test Yes Blood Gas Total Hemoglobin 13.90 12.0-16.0 g/dL Blood Gas Modality Room air FiO2 % 21.0 Blood Gas Critical Value Read Back Yes Blood Gas Notified Whom Dr. bautista Blood Gas Notified Time [id number] Blood Gas Notified By Jesus licea Prothrombin Time 10.6 9.3-11.8 sec Prothrombin Time INR 1.00 0.9-1.15 Activated Partial Thromboplast Time 25.4 24.5-34.5 SEC Hemoglobin A1c 5.7 <5.7 % A1C Phosphorus Level 6.6 H 2.4-5.1 mg/dL Vitamin B12 Level > 4000 H 211-911 pg/mL Vitamin D 25-Hydroxy 46.9 30.0-100 ng/mL Thyroid Stimulating Hormone (TSH) 0.11 L 0.55-4.78 uIU/mL Parathyroid Hormone (Intact) 100.3 H 18.4-80.1 pg/mL Urine Color Brown H Yellow Urine Clarity Ex.turbid Clear Urine pH 6.0 5.0-9.0 Urine Specific [place] 1.014 1.001-1.035 Urine Protein 2+ H Negative Urine Ketones Negative Negative Urine Blood 2+ H Negative /uL Urine Nitrite Negative Negative Urine Bilirubin Negative Negative Urine Urobilinogen Normal Negative mg/dL Urine Leukocyte Esterase 3+ Negative /uL Urine RBC 208 0 - 4 /hpf Urine WBC Clumps Present None Seen /hpf Urine Microscopic WBC 4972 H 0-5 /HPF Urine Squamous Epithelial Cells Few <5 /hpf Urine Bacteria Few H None Seen /hpf Urine Creatinine 226.91 H 30.0-125.0 mg/dL Urine Sodium 68 40-220 mmol/L Urine Glucose Normal Normal mg/dL Urine Total Protein 289.4 H 1-14 mg/dL Test 12/27/24 20:45 12/27/24 18:00 12/27/24 17:55 12/27/24 17:28 Range/Units Troponin I High Sensitivity 4 </=34 ng/L Influenza Type A Antigen Negative Negative Influenza Type B Antigen Negative Negative SARS-CoV-2 Antigen (Rapid) Negative NEGATIVE Lactic Acid Level 0.9 0.4-2.0 mmol/L B-Type Natriuretic Peptide 9.41 0-100 pg/mL POC Glucose 125 H 70-106 mg/dl Assessment Assessment: Acute kidney injury on chronic kidney disease/ ATN in the setting of septic shock likely due to UTI///plus severe nausea vomiting diarrhea Chronic Bilateral large staghorn calculi status post 4 lithotripsy interventions Right ureteral s/p double-J ureteral stent in place Anion gap metabolic acidosis Hyponatremia, resolving Uremic encephalopathy ruled out Septic shock requiring pressor support likely secondary to UTI History of H pylori history of tuberculosis Cholelithiasis based on abdominal CT scan Type 2 obesity Subclinical hypothyroidism Plan: Continue bicarbonate drip No need for hemodialysis for now , we will monitor on current treatment response Urology consultation, pending Clear liquid diet Keep Marie catheter Strict I&Os CBC CMP tomorrow morning Discontinue tamsulosin Antibiotics, sedatives and pressors per hospitalist Case discussed with Dr. Diego Code status: Full code Addendum Patient seen and examined, plan discussed with resident. Agree with above, we will follow closely Plan discussed with: Patient SABA TITUS December 28, 2024 14:02 LUCY DIEGO MD December 28, 2024 16:06
--- NOTE | 2024-12-28 14:57 | DVHPNRES ---
Progress Note Date Seen: December 28, 2024 Resident Creating Document: MARKIE SHOOK RESIDENT Has the PT tested + for MRSA If YES, has PT been informed?: No Medical Necessity Reason Pt with a Central, PICC or Fol: Yes The following are medically ne: Central Line, Kenny Catheter Reason for kenny catheter: Strict I&O Subjective Review of Systems This is a 62-year-old female with past medical history of prediabetes, hypertension, staghorn calculi, H pylori three months ago, tuberculosis, who presented to the ED with chief complaint of generalized weakness associated with nausea, vomiting and diarrhea. The patient states that one week ago she started developing nausea vomiting and diarrhea after having a meal and since three days ago she started feeling generalized weakness and fatigue. Upon admission, blood pressure was in the lower side at 84/57 patient was slightly tachycardic. BNP was showing a creatinine of 7.69 and BUN of 93. Initial ABG was showing severe metabolic acidosis with respiratory compensation per bolivar formula. CT of the abdomen is showing dense bilateral staghorn calculi without hydronephrosis and a right ureteral stent in place. Renal ultrasound was also showing multiple bilateral renal calculi with no hydronephrosis. Patient was coursing with urosepsis for which was started on Levophed and phenylephrine. Patient was also started on IV Flagyl and ceftriaxone. Nephrology was consulted and the patient was admitted for further assessment and management. Patient seen and examined at bedside. Patient is is currently on pressors maximized on Levophed and phenylephrine at 65. Patient was on nasal cannula at [address] scan of the abdomen was reviewed which showed bilateral staghorn calculi without hydronephrosis. Nephrology is on board and recommended to start fluids D5W 5% dextrose with sodium bicarbonate at 100 cc/hour for one more day and recheck ABG to monitor metabolic acidosis. Urology was consulted for bilateral staghorn calculi. The patient tried lithotripsy before but was unsuccessful. We will continue the patient on IV Flagyl and ceftriaxone at this time and we will monitor kidney function. Patient has negative bilateral costovertebral angle tenderness, denies abdominal tenderness, chest pain, shortness of breath or any other symptoms. Patient just reports feeling weak and fatigued. ROS: Constitutional: Reports generalized weakness and fatigue. Denies weight loss, fever and chills. HEENT: Denies changes in vision and hearing. Respiratory: Denies shortness of breath and cough Cardiovascular: Denies chest discomfort or palpitations GI: Denies abdominal pain, nausea, vomiting and diarrhea. : Denies dysuria and urinary frequency. Musculoskeletal: Denies myalgias and joint pain Skin: Denies rash and pruritus. Neurological: Denies dizziness, headache, vision or hearing problems Objective vital signs Vital Sign Date Time Temp Pulse Resp B/P (MAP) Pulse Ox O2 Delivery O2 Flow Rate FiO2 12/28/24 12:30 96/59 12/28/24 12:30 96 21 99 12/28/24 12:00 98.3 98.3 12/28/24 08:00 Nasal Cannula* 2 28 Total Intake and Output 12/27/24 12/27/24 12/28/24 15:00 23:00 07:00 Intake Total 405.00 ml Output Total 950 ml Balance -545.00 ml medications Current Medications Medications Dose Ordered Sig/Gaurav Route Start Time Stop Time Status Last Admin Dose Admin Ceftriaxone Sodium 50 ml @ 100 mls/hr DAILY@09 IV 12/28/24 09:00 12/28/24 08:21 100 MLS/HR Metronidazole 100 ml @ 100 mls/hr Q8HR IV 12/28/24 06:00 12/28/24 14:04 100 MLS/HR Pantoprazole Sodium 40 mg DAILY IV 12/28/24 10:00 12/28/24 10:50 40 MG Enoxaparin Sodium 40 mg DAILY SC 12/28/24 10:00 12/28/24 10:49 40 MG Phenylephrine HCl 250 ml @ 30 mls/hr Q8H20M IV 12/28/24 07:45 12/28/24 12:30 67.5 MLS/HR Norepinephrine Bitartrate 32 mg/ Sodium Chloride 250 ml @ 0.938 mls/ hr Q24H IV 12/28/24 11:30 12/28/24 12:30 14.063 MLS/HR Sodium Bicarbonate 150 ml/Dextrose 1,150 ml @ 100 mls/hr [id number] IV 12/28/24 22:15 Examination Physical examination: General: Patient alert and oriented in person, place and time. Patient following commands. HEENT: Normocephalic, atraumatic, moist mucous membranes. Central line in place Respiratory/pulmonary: Clear lungs bilaterally, no associated crackles or wheezes. Cardiovascular: Normal heart sounds S1 and S2 with no associated murmurs Abdomen: Abdomen nondistended, there is no pain to palpation in any of the abdominal quadrants, no palpable masses. Kenny's in place Extremities: There is no peripheral edema present at the lower extremities. Peripheral Pulses: 3+ Radial (R). 3+ Radial (L). 3+ Dorsalis pedis (R). 3+ Dorsalis pedis(L) Skin: No rashes or pruritus, there is no sacral edema present at this time. Neurological: Intact cranial nerves with no focal neurologic deficits laboratory and microbiology Laboratory Tests 12/28/24 09:19 Test 12/28/24 09:19 Range/Units Serum Glucose 227 H 74-106 mg/dL Labs and/or images reviewed: Labs reviewed by me, Image(s) reviewed by me Problem List/Assessment/Plan Problem List/Assessment/Plan Assessment/plan Septic shock requiring pressors due to acute cystitis/pyelonephritis due to staghorn calculi Acute metabolic (uremic) encephalopathy Acute renal failure likely due to bilateral staghorn calculi Acute anion gap metabolic acidosis with respiratory compensation Right ureteral stent, status post double-J ureteral stent placement Hyponatremia, resolved Acute cholelithiasis without cholecystitis History of H pylori, history of tuberculosis Gastroenteritis, likely infectious, resolved Type 2 diabetes mellitus, on prediabetes range Plan -chest x-ray was grossly unremarkable -CT of the abdomen showed bilateral dense staghorn calculi without hydronephrosis, there was a right ureteral stent in place. There was cholelithiasis without cholecystitis -continue IV ceftriaxone and Flagyl -currently maximized on Levophed, phenylephrine at 65 -nephrology on board recommended to start fluids D5W 5% dextrose with sodium bicarbonate at 100 cc/hour. -Consulted urology for staghorn renal calculi -Discontinue tamsulosin 0.4 mg daily -hemoglobin A1c was 5.7% currently on prediabetes range. No need of medications at this time -Will continue to monitor kidney function, no need for HD at this time -keep Kenny catheter and monitor strict in's and out Goals of care discussed with the patient and at bedside for 20min, FULL CODE 120 minutes of critical care time Plan discussed with Dr. Dumont Plan discussed with: Patient, Spouse, Other (RN) My Orders My Orders Orders - MARKIE SHOOK RESIDENT Procedure Category Date Status Time Sodium Bicarb PHA 12/28/24 In Process 50meq/50ml Vial 10:45 Clear Liq Diet DIET 12/28/24 Transmitted Lunch Critical Care Time (mins): 120 Addendum Addendum Addendum I was physically present for the pereira portions of the service provided to patient by THE RESIDENT. I have reviewed the documentation, discussed the case with resident and agree with the resident's documentation except as noted. Also the patient's clinical case was discussed with the patient's nurse. This medical document was created using an electronic medical record system with computerized dictation system. Although this document has been carefully reviewed, there might still be some phonetic and typographical errors. These areas are purely typographical due to imperfections of the software programs, and do not reflect any compromise in the patient's medical care. Late signature. Date of Service: December 28, 2024 Billing Provider: DESI DUMONT MD Common Visit Codes: 69795-OTZKSDLA CARE 30-74 MIN (120 minutes), 23795-BSKBWAGR CARE-EACH +30MIN Secondary Visit Codes: 24259-KZCOFTCG CARE PLAN 30 MINUTES (20 minutes) MARKIE SHOOK RESIDENT December 28, 2024 14:57 DESI DUMONT MD December 29, 2024 05:37
[2024-12-28] MEDS ORDERED: TAMSULOSIN HYDROCHLORIDE 0.4 MG CAP PO SCH (18:00)
[2024-12-28] MEDS: HYDROCORTISONE SOD SUCC 100 MG/2ML INJ VIAL IV SCH (21:40)
[2024-12-28] MEDS: ACETAMINOPHEN 325 MG TAB PO PRN (23:14)
[2024-12-29] VITALS (93 sets, daily range): BP systolic 89–150; BP diastolic 58–93; PULSE 44–101; RESP 7–25; TEMP 98–98.8; O2SAT 92–100
[2024-12-29 00:43] LABS: Base Excess -6.8 mmol/L (-2.0-3.0)
[2024-12-29] MEDS: SODIUM BICARB 50mEq/50ml Vial 150 ML in D5W 5% 1,000 ML IV SCH (01:21)
[2024-12-29 04:54] LABS: Basophils # (auto) 0 10 ^3/uL (0-0.2); Basophils % (auto) 0.1 % (0.0-2.0); Eosinophils # (auto) 0.1 10 ^3/uL (0-0.8); Eosinophils % (auto) 1.2 % (0.0-7.0); Hematocrit 36.5 % (36.0-46.0); Hemoglobin 12.5 g/dL (12.2-16.2); Lymphocytes # (auto) 0.7 10 ^3/uL (0.4-5.4); Lymphocytes % (auto) 10.9 % (10.0-50.0); Mean Corpuscular Hemoglobin 27.6 pg (28.0-32.0); Mean Corpuscular Hgb Conc. 34.1 g/dL (32.0-36.0); Mean Corpuscular Volume 80.9 fL (80.0-100.0); Monocytes # (auto) 0.3 10 ^3/uL (0-1.3); Monocytes % (auto) 4.8 % (0.0-12.0); Nucleated Red Blood Cells % 0.1 %; Platelet Count (auto) 160 10^3/uL (140-450); Red Blood Cells 4.51 10^6/uL (4.0-5.20); Red Cell Distribution Width 15.6 % (11.8-14.3)
[2024-12-29 05:08] LABS: Sodium 144 mmol/L (136-145)
[2024-12-29 05:09] LABS: Anion Gap 13 (5-15)
[2024-12-29 05:14] LABS: BUN/Creatinine Ratio 17.8 (10.0-20.0)
[2024-12-29 05:15] LABS: Blood Urea Nitrogen 78 mg/dL (9-23); Carbon Dioxide 19 mmol/L (20-31); Chloride 112 mmol/L (98-107); Glucose 260 mg/dL (74-106); Potassium 3.2 mmol/L (3.5-5.1)
[2024-12-29] MEDS: POTASSIUM CHL 20MEQ/50ML 50 ML IV ONE ×2 (07:00→16:09)
[2024-12-29] MEDS: DOPamine 1600MCG/ML D5W 250 ML IV SCH (07:01)
--- NOTE | 2024-12-29 10:15 | DVH ---
CLINICAL INFORMATION: Abnormal chest radiograph TECHNIQUE: Axial CT imaging of the chest was performed without IV contrast. Sagittal and coronal ref ormatted images were made, stored and reviewed. Evaluation is limited without IV contrast. One or mor e of the following dose reduction techniques were used: Automated exposure control. Adjustment of mA and/or kV according to patient size. CTDIvol = 26.65 mGy DLP = 883.14 mGy-cm COMPARISON: Chest radiograph dated 12/28/2024 FINDINGS: Aorta: No aneurysm or significant calcification. Cardiac: Heart size is within normal limits. No significant calcification. Mediastinum/tatiana: No mass or adenopathy. Left internal jugular central venous catheter reaches the pr oximal SVC. Lungs: Respiratory motion artifact limits evaluation. No focal consolidation, pneumothorax, or pleura l effusion visualized. Pulmonary arteries: No gross abnormality. Chest wall: Visualized portions of the chest wall are unremarkable Upper abdomen: Gallbladder appears distended with very small calcified gallstone visualized. Partiall y visualized large bilateral staghorn renal calculi. Bones: No fracture or suspicious intraosseous lesions. IMPRESSION: 1. No focal consolidation, pneumothorax, or pleural effusion. Respiratory motion artifact limits eval uation for subtle findings. 2. Distended gallbladder with small calcified gallstone. 3. Staghorn calculi in both kidneys partially visualized. 4. Additional nonacute findings as described above
[2024-12-29] MEDS: ENOXAPARIN SOD 30 MG/0.3 ML SYRINGE SC SCH (11:22)
--- NOTE | 2024-12-29 12:11 | ECG ---
[facility] Test Date: 2024-12-29 Test Time: 06:45:30 Pat Name: DARLING HAN Department: Respiratoy Room: 0221T Gender: F Vendor Manager: AMAURI : [id number] Requested By: CHERI CARDOZA Order Number: [id number] Reading MD: Manuel Yates Measurements Intervals Secor Rate: 48 P: 0 MN: 0 QRS: 10 QRSD: 127 T: 45 QT: 544 QTc: 487 Interpretive Statements Atrial fibrillation Nonspecific intraventricular conduction delay Electronically Signed On 01-02-2025 11:42:01 PDT by Manuel Yates Please click the below link to view image of tracing.
[2024-12-29] MEDS ORDERED: SODIUM CHLORIDE 0.9% 1,000 ML IV SCH (12:45)
[2024-12-29 13:31] LABS: Anion Gap 14 (5-15); Carbon Dioxide 22 mmol/L (20-31)
[2024-12-29 13:36] LABS: BUN/Creatinine Ratio 17.3 (10.0-20.0)
[2024-12-29 13:38] LABS: Blood Urea Nitrogen 63 mg/dL (9-23); Chloride 110 mmol/L (98-107); Glucose 285 mg/dL (74-106); Magnesium 1.6 mg/dL (1.6-2.6); Sodium 146 mmol/L (136-145)
--- NOTE | 2024-12-29 15:21 | DVHPN2 ---
Progress Note Date Seen: December 29, 2024 Has the PT tested + for MRSA If YES, has PT been informed?: No Medical Necessity Reason Pt with a Central, PICC or Fol: Yes The following are medically ne: Central Line, Kenny Catheter Reason for kenny catheter: Strict I&O Subjective Patient reports: No new complaints, Feels better Review of Systems: HEENT:Normal, CVS:Normal, RESPIRATORY:Normal, GI:Normal, :Normal, MSK:Normal, NEURO:Normal Objective vital signs Vital Sign Date Time Temp Pulse Resp B/P (MAP) Pulse Ox O2 Delivery O2 Flow Rate FiO2 12/29/24 14:30 60 21 141/79 (99) 94 12/29/24 08:00 Nasal Cannula* 2 28 12/29/24 04:00 98.1 98.1 Total Intake and Output 12/28/24 12/28/24 12/29/24 15:00 23:00 07:00 Intake Total 2215.15 ml 1852.652 ml 1345.566 ml Output Total 3000 ml 2250 ml Balance 2215.15 ml -1147.348 ml -904.434 ml medications Current Medications Medications Dose Ordered Sig/Gaurav Route Start Time Stop Time Status Last Admin Dose Admin Ceftriaxone Sodium 50 ml @ 100 mls/hr DAILY@09 IV 12/28/24 09:00 12/29/24 11:22 100 MLS/HR Metronidazole 100 ml @ 100 mls/hr Q8HR IV 12/28/24 06:00 12/29/24 14:50 100 MLS/HR Pantoprazole Sodium 40 mg DAILY IV 12/28/24 10:00 12/29/24 11:22 40 MG Phenylephrine HCl 250 ml @ 30 mls/hr Q8H20M IV 12/28/24 07:45 12/29/24 00:22 48.75 MLS/HR Norepinephrine Bitartrate 32 mg/ Sodium Chloride 250 ml @ 0.938 mls/ hr Q24H IV 12/28/24 11:30 12/29/24 05:35 14.063 MLS/HR Sodium Bicarbonate 150 ml/Dextrose 1,150 ml @ 100 mls/hr [id number] IV 12/28/24 22:15 12/29/24 01:21 100 MLS/HR Hydrocortisone Sodium Succinate 100 mg Q8HR IV 12/28/24 22:00 12/29/24 14:50 100 MG Acetaminophen 650 mg Q6HP PRN PO 12/28/24 22:45 12/28/24 23:14 650 MG Dopamine HCl/ Dextrose 250 ml @ 18.281 mls/ hr [id number] IV 12/29/24 06:45 12/29/24 07:01 18.281 MLS/HR Enoxaparin Sodium 30 mg DAILY SC 12/29/24 10:00 12/29/24 11:22 30 MG Sodium Chloride 1,000 ml @ 100 mls/hr Q10H IV 12/29/24 12:45 Hold laboratory and microbiology Laboratory Tests 12/29/24 13:04 12/29/24 04:24 Test 12/29/24 13:04 Range/Units Serum Glucose 285 H 74-106 mg/dL Microbiology Date/Time Source Procedure Growth Status 12/28/24 03:35 Urine - Kenny Port Urine Culture - Preliminary Resulted 12/28/24 03:30 Nose MRSA Screen - Final Complete 12/27/24 17:55 Blood Blood Culture - Preliminary NO GROWTH AFTER 24 HOURS OF INCUBATION. Resulted Problem List/Assessment/Plan Problem List/Assessment/Plan Acute kidney injury on chronic kidney disease/ ATN in the setting of septic shock likely due to UTI///plus severe nausea vomiting diarrhea Chronic Bilateral large staghorn calculi status post 4 lithotripsy interventions Right ureteral s/p double-J ureteral stent in place Anion gap metabolic acidosis Hyponatremia, resolving Uremic encephalopathy ruled out Septic shock requiring pressor support likely secondary to UTI History of H pylori history of tuberculosis Cholelithiasis based on abdominal CT scan Type 2 obesity recs DC bicarb drip Switch to half NS IV Renal function improving No indication for dialysis Plan discussed with: Patient My Orders My Orders Orders - LUCY DIEGO MD Procedure Category Date Status Time Sod Chl 0.45% (Sodium PHA 12/29/24 Logged Chloride 0.45% Via 15:30 LUCY DIEGO MD December 29, 2024 15:21
[2024-12-29] MEDS: SOD CHL 0.45% 1,000 ML IV SCH (15:30)
--- NOTE | 2024-12-29 15:37 | DVHINCON2 ---
Date Seen: December 29, 2024 Referring Physician Hospitalist Reason for Consultation Second-degree AV block History of Present Illness This 54-year-old female presents in the ED with a chief complaint of nausea and vomiting. In the emergency department, the patient is found to be in acute renal failure and severe sepsis requiring vasopressors for BP support. Cardiology is consulted due to changes in EKG. Upon assessment the patient 12 lead ECG in the emergency department revealing sinus rhythm. Today's 12 lead ECG showing bradycardia with nonspecific intraventricular conduction delay. On telemetry, noted the patient in and out of sinus rhythm, sinus imelda with second-degree AV block type 1. Magnesium is 1.6 and potassium is 3.3. The patient denies dizziness, lightheadedness, chest pain, palpitations, shortness of breath or dyspnea. Current BP is in 130/90s on Levophed and dopamine drip. Past medical history of prediabetes and kidney stones. Past Medical History Prediabetes ISIDRO Past Surgical History Kidney Stents Family History: Diabetes mellitus (DAD AND SISTER) G8 FATHER G8 SISTER Family History Reviewed, non-contributory to the management of this case. Social History The patient lives at home, denies smoking, alcohol or illicit drugs abuse. Allergies: Coded Allergies: NO KNOWN ALLERGIES (Unverified , 12/27/24) Home Meds Reported Medications Omeprazole (Omeprazole Dr) 20 Mg Cap, 1 CAP PO BID 12/28/24 Cholecalciferol (Gnp Vitamin D) 1,000 Unit Tab, 1 TAB PO DAILY 12/28/24 Current Medications Current Medications Medications (Trade) Dose Ordered Sig/Gaurav Route PRN Reason Start Time Stop Time Status Last Admin Tamsulosin HCl (Flomax) 0.4 mg QPM PO 12/28/24 18:00 12/28/24 12:08 DC Sodium Bicarbonate 150 ml/Dextrose 1,150 ml @ 100 mls/hr [id number] IV 12/28/24 22:15 12/29/24 01:21 Hydrocortisone Sodium Succinate (Solu-CORTEF INJECTION) 100 mg Q8HR IV 12/28/24 22:00 12/29/24 14:50 Acetaminophen (Tylenol Tablet) 650 mg Q6HP PRN PO MILD PAIN (1-3 PAIN SCALE) 12/28/24 22:45 12/28/24 23:14 Dopamine HCl/ Dextrose 250 ml @ 18.281 mls/ hr [id number] IV 12/29/24 06:45 12/29/24 07:01 Enoxaparin Sodium (Lovenox) 30 mg DAILY SC 12/29/24 10:00 12/29/24 11:22 Sodium Chloride 1,000 ml @ 100 mls/hr Q10H IV 12/29/24 12:45 12/29/24 15:17 DC Sodium Chloride 1,000 ml @ 100 mls/hr Q10H IV 12/29/24 15:30 Review of Systems Constitutional: No symptom reported Ears, Nose, & Throat: No symptom reported Eyes: No symptom reported Neurological: No symptoms reported Pulmonary/Respiratory: No symptom reported Cardiovascular: Changes in EKG Gastrointestinal: No symptom reported Genitourinary: No symptom reported Musculoskeletal: No symptom reported Skin: No symptom reported Psychiatric: No symptom reported Endocrine: No symptom reported Hematologic/Lymphatic: No symptom reported Vital Signs Vital Signs Date Time Temp Pulse Resp B/P (MAP) Pulse Ox O2 Delivery O2 Flow Rate FiO2 12/29/24 14:30 60 21 141/79 (99) 94 12/29/24 08:00 Nasal Cannula* 2 28 12/29/24 04:00 98.1 98.1 Physical Exam INITIAL VITAL SIGNS: Reviewed by me GENERAL: Alert and interactive. No acute distress. HEAD: Head is normocephalic and atraumatic. EYES: EOMI, PERRL. No scleral icterus. No conjunctival injection. ENT: Moist mucous membranes. NECK: Supple, No masses, Full range of motion. RESPIRATORY: No tachypnea. Clear breath sounds bilaterally. No wheezing, rales, rhonchi. CV: Regular rate and rhythm. Second-degree AV block type 1, hypotension currently on vasopressors GI/: Active bowel sounds, soft, nondistended, nontender. No guarding. No rebound. No masses. No CVA tenderness. INTEGUMENTARY: Warm and dry. No obvious rashes. NEUROLOGIC: Alert and oriented. Face is symmetric. Speech is normal. Moves all extremities equally. Labs/Diagnostic Data Labs Test 12/29/24 13:04 12/29/24 04:24 12/29/24 00:29 12/28/24 09:19 Range/Units Sodium Level 146 H 136-145 mmol/L Potassium Level 3.0 L 3.5-5.1 mmol/L Chloride Level 110 H 98-107 mmol/L Carbon Dioxide Level 22 20-31 mmol/L Anion Gap 14 5-15 Blood Urea Nitrogen 63 #H 9-23 mg/dL Creatinine 3.64 H 0.550-1.02 mg/dL Glomerular Filtration Rate Calc 14 >90 mL/min BUN/Creatinine Ratio 17.3 10.0-20.0 Serum Glucose 285 H 74-106 mg/dL Calcium Level 9.0 8.7-10.4 mg/dL Magnesium Level 1.6 1.6-2.6 mg/dL White Blood Count 6.0 # 4.4-10.8 10^3/uL Red Blood Count 4.51 4.0-5.20 10^6/uL Hemoglobin 12.5 12.2-16.2 g/dL Hematocrit 36.5 36.0-46.0 % Mean Corpuscular Volume 80.9 80.0-100.0 fL Mean Corpuscular Hemoglobin 27.6 L 28.0-32.0 pg Mean Corpuscular Hemoglobin Concent 34.1 32.0-36.0 g/dL Red Cell Distribution Width 15.6 H 11.8-14.3 % Platelet Count 160 140-450 10^3/uL Mean Platelet Volume 8.7 6.9-10.8 fL Neutrophils (%) (Auto) 83.0 H 37.0-80.0 % Lymphocytes (%) (Auto) 10.9 10.0-50.0 % Monocytes (%) (Auto) 4.8 0.0-12.0 % Eosinophils (%) (Auto) 1.2 0.0-7.0 % Basophils (%) (Auto) 0.1 0.0-2.0 % Neutrophils # (Auto) 5.0 1.6-8.6 10 ^3/uL Lymphocytes # (Auto) 0.7 0.4-5.4 10 ^3/uL Monocytes # (Auto) 0.3 0-1.3 10 ^3/uL Eosinophils # (Auto) 0.1 0-0.8 10 ^3/uL Basophils # (Auto) 0 0-0.2 10 ^3/uL Nucleated Red Blood Cells 0.1 % Blood Gas Specimen Type Arterial Blood Gas Sample Site Left radial Blood Gas Patient Temperature 37.0 Arterial Blood Date Drawn [id number] Arterial Blood pH 7.403 7.350-7.450 Arterial Blood Partial Pressure CO2 27.0 L 32.0-45.0 mmHg Arterial Blood Partial Pressure O2 117.4 H 83.0-108.0 mmHg Arterial Blood HCO3 16.5 L 21.0-28.0 mmol/L Arterial Blood Oxygen Saturation 97.6 94.0-98.0 % Arterial Blood Base Excess -6.8 L -2.0-3.0 mmol/L Arterial Blood Oxyhemoglobin 96.7 94.0-98.0 % Arterial Blood Carboxyhemoglobin 0.3 L 0.5-1.5 % Arterial Blood Methemoglobin 0.6 0.0-1.5 % Sree Test Yes Blood Gas Total Hemoglobin 13.00 12.0-16.0 g/dL Blood Gas Liter Flow 2.00 Blood Gas Modality Nasal cannula FiO2 % 28.0 Total Bilirubin 0.3 0.2-1.0 mg/dL Aspartate Amino Transferase (AST) 9 L 13-40 U/L Alanine Aminotransferase (ALT) 11 7-40 U/L Alkaline Phosphatase 72 46-116 U/L Total Protein 6.5 5.7-8.2 g/dL Albumin 3.4 3.2-4.8 g/dL Free Thyroxine (T4) Calculated 1.07 0.89-1.76 ng/dL Test 12/28/24 04:55 12/27/24 23:57 12/27/24 21:45 12/27/24 20:45 Range/Units Blood Gas Critical Value Read Back Yes Blood Gas Notified Whom Dr. bautista Blood Gas Notified Time [id number] Blood Gas Notified By Stone [employer] Rigger burke licea Prothrombin Time 10.6 9.3-11.8 sec Prothrombin Time INR 1.00 0.9-1.15 Activated Partial Thromboplast Time 25.4 24.5-34.5 SEC Hemoglobin A1c 5.7 <5.7 % A1C Phosphorus Level 6.6 H 2.4-5.1 mg/dL Vitamin B12 Level > 4000 H 211-911 pg/mL Vitamin D 25-Hydroxy 46.9 30.0-100 ng/mL Thyroid Stimulating Hormone (TSH) 0.11 L 0.55-4.78 uIU/mL Parathyroid Hormone (Intact) 100.3 H 18.4-80.1 pg/mL Urine Color Brown H Yellow Urine Clarity Ex.turbid Clear Urine pH 6.0 5.0-9.0 Urine Specific [place] 1.014 1.001-1.035 Urine Protein 2+ H Negative Urine Ketones Negative Negative Urine Blood 2+ H Negative /uL Urine Nitrite Negative Negative Urine Bilirubin Negative Negative Urine Urobilinogen Normal Negative mg/dL Urine Leukocyte Esterase 3+ Negative /uL Urine RBC 208 0 - 4 /hpf Urine WBC Clumps Present None Seen /hpf Urine Microscopic WBC 4972 H 0-5 /HPF Urine Squamous Epithelial Cells Few <5 /hpf Urine Bacteria Few H None Seen /hpf Urine Creatinine 226.91 H 30.0-125.0 mg/dL Urine Sodium 68 40-220 mmol/L Urine Glucose Normal Normal mg/dL Urine Total Protein 289.4 H 1-14 mg/dL Troponin I High Sensitivity 4 </=34 ng/L Test 12/27/24 18:00 12/27/24 17:55 12/27/24 17:28 Range/Units Influenza Type A Antigen Negative Negative Influenza Type B Antigen Negative Negative SARS-CoV-2 Antigen (Rapid) Negative NEGATIVE Lactic Acid Level 0.9 0.4-2.0 mmol/L B-Type Natriuretic Peptide 9.41 0-100 pg/mL POC Glucose 125 H 70-106 mg/dl Microbiology Date/Time Source Procedure Growth Status 12/28/24 03:35 Urine - Marie [place] Urine Culture - Preliminary Resulted 12/28/24 03:30 Nose MRSA Screen - Final Complete 12/27/24 17:55 Blood Blood Culture - Preliminary NO GROWTH AFTER 24 HOURS OF INCUBATION. Resulted PROCEDURE(s): CXRP - CHEST PORTABLE REASON: hypotensive, n/v/d bodyaches ORDER NUMBER(s): [id number], ACCESSION NUMBER(s): [id number] CHEST RADIOGRAPH Indication: hypotensive, n/v/d bodyaches Technique: Single frontal view of the chest was obtained Comparison: None FINDINGS: Lungs are hypoventilatory but there are no infiltrates or effusions pulmonary vasculature normal. Heart is normal size but there is a widened mediastinum possibly due to mediastinal lipomatosis. IMPRESSION: 1. Widened mediastinum. Follow-up CT examination of the chest may be appropriate Assessment Second-degree AV block type 1, possible dopamine induced Sepsis requiring vasopressor support Acute kidney failure Right ureteral s/p double-J ureteral stent in place Obesity Plan/Recommendation (Dr. Reina ): The patient presented with septic shock requiring vasopressor support Levophed and dopamine. Acute changes in EKG from sinus rhythm to second-degree AV block type 1 is likely induced by dopamine drip. We will discontinue dopamine and titrate of Levophed given stable BP. Avoid AV jairo blocking agents. In the meantime, we will get echocardiogram to evaluate cardiac function. Replete electrolytes to keep magnesium >2.2 and K 4.0. Close cardiac surveillance. This medical document was created using an electronic medical record system with voice recognition software and computerized dictation system. Although this document has been carefully reviewed, there might still be some phonetic and typographical errors. Occasional wrong-word or ``sound-alike substitutions may have occurred due to the inherent limitations of voice recognition software. These areas are purely typographical due to imperfections of the software programs and do not reflect any compromise in the patient's medical care. Please read the chart carefully and recognize, using context, where these substitutions have occurred. Plan discussed with: Patient Plan discussed with: Patient NYHA Physical activity limitations: NA Date of Service: December 29, 2024 Billing Provider: PATRICIA REINA MD Cardiology Common Codes: NOT BILLABLE Cardiology Consultation Codes: 25622-[id number] CONSULT <60MIN JYOTSNA KAHN HOME OFFICE REPRESENTATIVE December 29, 2024 15:37
[2024-12-29] MEDS: MAGNESIUM SULFATE 1GM/100ML 100 ML IV ONE (16:09)
[2024-12-29 16:35] LABS: LDL Cholesterol 85 mg/dL (< 100); Triglycerides 93 mg/dL (< 150)
[2024-12-29 16:37] LABS: Cholesterol 127 mg/dL (< 200); HDL Cholesterol 29 mg/dL (40-59)
--- NOTE | 2024-12-29 18:33 | DVHPN2 ---
Subjective in bed Changes from previous H/P or p: No Changes Gastrointestinal: Nausea, Vomiting, Abdominal Pain Objective Vitals Vital Signs Date Time Temp Pulse Resp B/P (MAP) Pulse Ox O2 Delivery O2 Flow Rate FiO2 12/29/24 14:30 60 21 141/79 (99) 94 12/29/24 08:00 Nasal Cannula* 2 28 12/29/24 04:00 98.1 98.1 Intake/Output Intake and Output 12/29/24 07:00 Intake Total 5413.368 ml Output Total 5250 ml Balance 163.368 ml Intake Oral 600 ml IV Total 4813.368 ml Output Urine Total 5250 ml Stool Total 0 ml General Appearance: Alert, Oriented X3 HEENT: Atraumatic Lungs: Clear to auscultation Cardiovascular: Regular rate, Normal S1, Normal S2 Abdomen: Normal bowel sounds Medications Current Medications Medications Dose Ordered Sig/Gaurav Route Start Time Stop Time Status Last Admin Dose Admin Ceftriaxone Sodium 50 ml @ 100 mls/hr DAILY@09 IV 12/28/24 09:00 12/29/24 11:22 100 MLS/HR Metronidazole 100 ml @ 100 mls/hr Q8HR IV 12/28/24 06:00 12/29/24 15:50 100 MLS/HR Pantoprazole Sodium 40 mg DAILY IV 12/28/24 10:00 12/29/24 11:22 40 MG Phenylephrine HCl 250 ml @ 30 mls/hr Q8H20M IV 12/28/24 07:45 12/29/24 00:22 48.75 MLS/HR Norepinephrine Bitartrate 32 mg/ Sodium Chloride 250 ml @ 0.938 mls/ hr Q24H IV 12/28/24 11:30 12/29/24 05:35 14.063 MLS/HR Sodium Bicarbonate 150 ml/Dextrose 1,150 ml @ 100 mls/hr [id number] IV 12/28/24 22:15 12/29/24 01:21 100 MLS/HR Hydrocortisone Sodium Succinate 100 mg Q8HR IV 12/28/24 22:00 12/29/24 14:50 100 MG Acetaminophen 650 mg Q6HP PRN PO 12/28/24 22:45 12/28/24 23:14 650 MG Dopamine HCl/ Dextrose 250 ml @ 18.281 mls/ hr [id number] IV 12/29/24 06:45 12/29/24 07:01 18.281 MLS/HR Enoxaparin Sodium 30 mg DAILY SC 12/29/24 10:00 12/29/24 11:22 30 MG Sodium Chloride 1,000 ml @ 100 mls/hr Q10H IV 12/29/24 15:30 Laboratory Results Laboratory Tests 12/29/24 04:24 12/29/24 13:04 Chemistry Test 12/29/24 04:24 12/29/24 13:04 Calcium Level 9.0 mg/dL (8.7-10.4) 9.0 mg/dL (8.7-10.4) Magnesium Level 1.6 mg/dL (1.6-2.6) 1.6 mg/dL (1.6-2.6) Lipid panel Test 12/29/24 13:04 Cholesterol Level 127 mg/dL (< 200) HDL Cholesterol 29 mg/dL (40-59) L Triglycerides Level 93 mg/dL (< 150) Urinalysis Test 12/27/24 21:45 Urine Color Brown (Yellow) H Urine Clarity Ex.turbid (Clear) Urine pH 6.0 (5.0-9.0) Urine Specific [place] 1.014 (1.001-1.035) Urine Protein 2+ (Negative) H Urine Ketones Negative (Negative) Urine Blood 2+ /uL (Negative) H Urine Nitrite Negative (Negative) Urine Bilirubin Negative (Negative) Urine Urobilinogen Normal mg/dL (Negative) Urine Leukocyte Esterase 3+ /uL (Negative) Urine RBC 208 /hpf (0 - 4) Urine WBC Clumps Present /hpf (None Seen) Urine Microscopic WBC 4972 /HPF (0-5) H Urine Squamous Epithelial Cells Few /hpf (<5) Urine Bacteria Few /hpf (None Seen) H Urine Creatinine 226.91 mg/dL (30.0-125.0) H Urine Sodium 68 mmol/L (40-220) Urine Glucose Normal mg/dL (Normal) Urine Total Protein 289.4 mg/dL (1-14) H Blood Gas Results Test 12/29/24 00:29 Arterial Blood pH 7.403 (7.350-7.450) FiO2 % 28.0 Microbiology Microbiology Date/Time Source Procedure Growth Status 12/28/24 03:35 Urine - [place] Urine Culture - Preliminary Resulted 12/28/24 03:30 Nose MRSA Screen - Final Complete 12/27/24 17:55 Blood Blood Culture - Preliminary NO GROWTH AFTER 48 HOURS OF INCUBATION. Resulted Assessment/Plan Assessment/Plan Septic shock requiring pressors due to acute cystitis/pyelonephritis due to staghorn calculi Acute metabolic (uremic) encephalopathy Acute renal failure likely due to bilateral staghorn calculi Acute anion gap metabolic acidosis with respiratory compensation Right ureteral stent, status post double-J ureteral stent placement Hyponatremia, resolved Acute cholelithiasis without cholecystitis History of H pylori, history of tuberculosis Gastroenteritis, likely infectious, resolved Type 2 diabetes mellitus, on prediabetes range Plan -chest x-ray was grossly unremarkable -CT of the abdomen showed bilateral dense staghorn calculi without hydronephrosis, there was a right ureteral stent in place. There was cholelithiasis without cholecystitis -continue IV ceftriaxone and Flagyl -currently maximized on Levophed, phenylephrine at 65 -nephrology on board recommended to start fluids D5W 5% dextrose with sodium bicarbonate at 100 cc/hour. -Consulted urology for staghorn renal calculi -Discontinue tamsulosin 0.4 mg daily -hemoglobin A1c was 5.7% currently on prediabetes range. No need of medications at this time -Will continue to monitor kidney function, no need for HD at this time -keep Marie catheter and monitor strict in's and out Goals of care discussed with the patient and at bedside for 20min, FULL CODE 120 minutes of critical care time Plan discussed with: Other (nurse) My Orders Orders - BELINDA PARIS MD Procedure Category Date Status Time * Cardiology Consult CONS 12/29/24 Transmitted 14:01 Renal DIET 12/29/24 Transmitted Standard(2gna,3gk,Lopho) Dinner * Urology Consult CONS 12/29/24 Transmitted 14:35 Date of Service: December 29, 2024 Billing Provider: BELINDA PARIS MD Common Visit Codes: [id number] CARE 30-74 MIN BELINDA PARIS MD December 29, 2024 18:33
[2024-12-30] VITALS (96 sets, daily range): BP systolic 90–132; BP diastolic 42–95; PULSE 43–88; RESP 7–26; TEMP 97.8–98.4; O2SAT 86–98
[2024-12-30 04:56] LABS: Basophils # (auto) 0 10 ^3/uL (0-0.2); Basophils % (auto) 0.2 % (0.0-2.0); Eosinophils # (auto) 0 10 ^3/uL (0-0.8); Eosinophils % (auto) 0.5 % (0.0-7.0); Hematocrit 30.5 % (36.0-46.0); Hemoglobin 10.3 g/dL (12.2-16.2); Lymphocytes # (auto) 0.8 10 ^3/uL (0.4-5.4); Lymphocytes % (auto) 14.7 % (10.0-50.0); Mean Corpuscular Hemoglobin 27.5 pg (28.0-32.0); Mean Corpuscular Hgb Conc. 33.8 g/dL (32.0-36.0); Mean Corpuscular Volume 81.3 fL (80.0-100.0); Monocytes # (auto) 0.4 10 ^3/uL (0-1.3); Neutrophils # (auto) 4.1 10 ^3/uL (1.6-8.6); Neutrophils % (auto) 77.6 % (37.0-80.0); Nucleated Red Blood Cells % 0.1 %; Platelet Count (auto) 129 10^3/uL (140-450); Red Blood Cells 3.75 10^6/uL (4.0-5.20); Red Cell Distribution Width 15.5 % (11.8-14.3); White Blood Cell 5.3 10^3/uL (4.4-10.8)
[2024-12-30 05:09] LABS: Anion Gap 12 (5-15); Carbon Dioxide 24 mmol/L (20-31)
[2024-12-30 05:15] LABS: BUN/Creatinine Ratio 19.8 (10.0-20.0); Blood Urea Nitrogen 58 mg/dL (9-23); Chloride 112 mmol/L (98-107); Glucose 149 mg/dL (74-106); Potassium 3.5 mmol/L (3.5-5.1); Sodium 148 mmol/L (136-145)
--- NOTE | 2024-12-30 10:27 | DVHSR ---
APPROVED REPORT EXAM: Two-dimensional and M-mode echocardiogram with Doppler and color Doppler. Blood Pressure: 141/79 mmHg INDICATION 2nd degree AVB RISK FACTORS Obesity: Height: 5'5", Weight: 214 DIMENSIONS LVDd4.2 (3.8-5.7cm)LA (2D)3.4 (1.9-4.0cm)Aortic Root3.5 (2.0-3.7cm) LVDs2.7 (2.5-4.0cm)LA (MM) (1.9-4.0cm)Aortic Cusp Exc1.9 (1.5-2.0cm) EF (%) 65.0 (55-70%)Rt. Atrium3.7 (1.9-4.0cm)Asc. Aorta cm IVSd0.9 (0.7-1.1cm)RV (D) (1.8-2.4cm) PWd1.0 (0.7-1.1cm) Mitral Valve MitralMitral Stenosis E wave0.89m/sMV Mean GR.mmHg A wave0.93m/sMV Peak GR.mmHg E/A ratio1.02D MVAcm2 DECEL [id number] 1/2 [place] Aortic Valve Aortic ValveAortic Stenosis V11.38m/Tarah Mean GR.7mmHg V21.87m/Tarah Peak GR.14mmHg LVOT Diameter2.0 (1.8-2.4cm)Doppler AVA2.32cm2 Tricuspid Valve TR Velocity2.15m/s [id number] Other Information Technically limited study due to body habitus and patient position. Conclusion lvef 60% by visual estimate normal rv function normal atria no severe valve abnormalities noted
[2024-12-30] MEDS: MAGNESIUM SULFATE 1GM/100ML 100 ML IV SCH (11:53)
[2024-12-30] MEDS: POTASSIUM CHL 20 Meq TABLET PO ONE (11:53)
--- NOTE | 2024-12-30 12:08 | DVHPN2 ---
Progress Note Date Seen: December 30, 2024 Has the PT tested + for MRSA If YES, has PT been informed?: No Medical Necessity Reason Pt with a Central, PICC or Fol: Yes The following are medically ne: Central Line, Kenny Catheter Reason for kenny catheter: Strict I&O Subjective Patient reports: Feels better Other Systems: no major tele events has sinus imelda in 30s around 0800 no long pauses Objective vital signs Vital Sign Date Time Temp Pulse Resp B/P (MAP) Pulse Ox O2 Delivery O2 Flow Rate FiO2 12/30/24 10:00 60 14 112/77 (89) 98 12/30/24 08:00 Room Air* 0 21 12/30/24 08:00 97.9 97.9 Total Intake and Output 12/29/24 12/29/24 12/30/24 15:00 23:00 07:00 Intake Total 246.091 ml 1548.971 ml 1157.566 ml Output Total 2700 ml 700 ml Balance 246.091 ml -1151.029 ml 457.566 ml medications Current Medications Medications Dose Ordered Sig/Gaurav Route Start Time Stop Time Status Last Admin Dose Admin Ceftriaxone Sodium 50 ml @ 100 mls/hr DAILY@09 IV 12/28/24 09:00 12/30/24 08:41 100 MLS/HR Metronidazole 100 ml @ 100 mls/hr Q8HR IV 12/28/24 06:00 12/30/24 05:42 100 MLS/HR Pantoprazole Sodium 40 mg DAILY IV 12/28/24 10:00 12/30/24 08:41 40 MG Phenylephrine HCl 250 ml @ 30 mls/hr Q8H20M IV 12/28/24 07:45 12/29/24 00:22 48.75 MLS/HR Norepinephrine Bitartrate 32 mg/ Sodium Chloride 250 ml @ 0.938 mls/ hr Q24H IV 12/28/24 11:30 12/30/24 05:29 0.938 MLS/HR Hydrocortisone Sodium Succinate 100 mg Q8HR IV 12/28/24 22:00 12/30/24 05:29 100 MG Acetaminophen 650 mg Q6HP PRN PO 12/28/24 22:45 12/28/24 23:14 650 MG Enoxaparin Sodium 30 mg DAILY SC 12/29/24 10:00 12/30/24 08:43 30 MG Sodium Chloride 1,000 ml @ 100 mls/hr Q10H IV 12/29/24 15:30 12/30/24 05:29 100 MLS/HR Magnesium Sulfate/ Dextrose 100 ml @ 100 mls/hr Q1HR IV 12/30/24 12:00 12/30/24 13:59 12/30/24 11:53 100 MLS/HR Examination: GENERAL:Abnormal, HEENT:Abnormal, LUNGS:Abnormal, CVS:Abnormal, ABDOMEN:Abnormal laboratory and microbiology Laboratory Tests 12/30/24 04:34 Test 12/30/24 04:34 Range/Units Serum Glucose 149 H 74-106 mg/dL Microbiology Date/Time Source Procedure Growth Status 12/28/24 03:35 Urine - [place] Urine Culture - Preliminary Resulted 12/28/24 03:30 Nose MRSA Screen - Final Complete 12/27/24 17:55 Blood Blood Culture - Preliminary NO GROWTH AFTER 48 HOURS OF INCUBATION. 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
--- NOTE | 2024-12-30 13:09 | DVHPN2 ---
Progress Note Date Seen: December 30, 2024 Has the PT tested + for MRSA If YES, has PT been informed?: No Medical Necessity Reason Pt with a Central, PICC or Fol: Yes The following are medically ne: Central Line, Kenny Catheter Reason for kenny catheter: Strict I&O Subjective Patient reports: No new complaints, Feels better Review of Systems: HEENT:Normal, CVS:Normal, RESPIRATORY:Normal, GI:Normal, :Normal, MSK:Normal, NEURO:Normal Objective vital signs Vital Sign Date Time Temp Pulse Resp B/P (MAP) Pulse Ox O2 Delivery O2 Flow Rate FiO2 12/30/24 12:00 59 12/30/24 12:00 98.4 17 116/81 (93) 95 98.4 12/30/24 08:00 Room Air* 0 21 Total Intake and Output 12/29/24 12/29/24 12/30/24 15:00 23:00 07:00 Intake Total 246.091 ml 1548.971 ml 1157.566 ml Output Total 2700 ml 700 ml Balance 246.091 ml -1151.029 ml 457.566 ml medications Current Medications Medications Dose Ordered Sig/Gaurav Route Start Time Stop Time Status Last Admin Dose Admin Ceftriaxone Sodium 50 ml @ 100 mls/hr DAILY@09 IV 12/28/24 09:00 12/30/24 08:41 100 MLS/HR Metronidazole 100 ml @ 100 mls/hr Q8HR IV 12/28/24 06:00 12/30/24 05:42 100 MLS/HR Pantoprazole Sodium 40 mg DAILY IV 12/28/24 10:00 12/30/24 08:41 40 MG Phenylephrine HCl 250 ml @ 30 mls/hr Q8H20M IV 12/28/24 07:45 12/29/24 00:22 48.75 MLS/HR Norepinephrine Bitartrate 32 mg/ Sodium Chloride 250 ml @ 0.938 mls/ hr Q24H IV 12/28/24 11:30 12/30/24 05:29 0.938 MLS/HR Hydrocortisone Sodium Succinate 100 mg Q8HR IV 12/28/24 22:00 12/30/24 05:29 100 MG Acetaminophen 650 mg Q6HP PRN PO 12/28/24 22:45 12/28/24 23:14 650 MG Enoxaparin Sodium 30 mg DAILY SC 12/29/24 10:00 12/30/24 08:43 30 MG Sodium Chloride 1,000 ml @ 100 mls/hr Q10H IV 12/29/24 15:30 12/30/24 05:29 100 MLS/HR Magnesium Sulfate/ Dextrose 100 ml @ 100 mls/hr Q1HR IV 12/30/24 12:00 12/30/24 13:59 12/30/24 11:53 100 MLS/HR laboratory and microbiology Laboratory Tests 12/30/24 04:34 Test 12/30/24 04:34 Range/Units Serum Glucose 149 H 74-106 mg/dL Microbiology Date/Time Source Procedure Growth Status 12/28/24 03:35 Urine - [place] Urine Culture - Preliminary Resulted 12/28/24 03:30 Nose MRSA Screen - Final Complete 12/27/24 17:55 Blood Blood Culture - Preliminary NO GROWTH AFTER 48 HOURS OF INCUBATION. Resulted Problem List/Assessment/Plan Problem List/Assessment/Plan Acute kidney injury on chronic kidney disease/ ATN in the setting of septic shock likely due to UTI///plus severe nausea vomiting diarrhea+retention Chronic Bilateral large staghorn calculi status post 4 lithotripsy interventions Right ureteral s/p double-J ureteral stent in place Anion gap metabolic acidosis Hyponatremia, resolving Uremic encephalopathy ruled out Septic shock requiring pressor support likely secondary to UTI History of H pylori history of tuberculosis Cholelithiasis based on abdominal CT scan Type 2 obesity recs Switch to LR Renal function improving No indication for dialysis urology consult Plan discussed with: Patient My Orders My Orders Orders - LUCY DIEGO MD Procedure Category Date Status Time Sod Chl 0.45% (Sodium PHA 12/29/24 In Process Chloride 0.45% Via 15:30 Lactated Ringers Lr PHA 12/30/24 Verified 13:15 LUCY DIEGO MD December 30, 2024 13:09
[2024-12-30] MEDS: LACTATED RINGER'S 1,000 ML IV SCH (14:03)
--- NOTE | 2024-12-30 15:13 | DVHPN2 ---
Subjective in bed Changes from previous H/P or p: No Changes Gastrointestinal: Nausea, Vomiting, Abdominal Pain Objective Vitals Vital Signs Date Time Temp Pulse Resp B/P (MAP) Pulse Ox O2 Delivery O2 Flow Rate FiO2 12/30/24 14:15 71 20 115/75 (88) 91 12/30/24 12:00 98.4 98.4 12/30/24 08:00 Room Air* 0 21 Intake/Output Intake and Output 12/30/24 07:00 Intake Total 2952.628 ml Output Total 3400 ml Balance -447.372 ml Intake Oral 250 ml IV Total 2426.628 ml Blood Product 276 ml Output Urine Total 3400 ml # Bowel Movements 1 General Appearance: Alert, Oriented X3 HEENT: Atraumatic Lungs: Clear to auscultation Cardiovascular: Regular rate, Normal S1, Normal S2 Abdomen: Normal bowel sounds Medications Current Medications Medications Dose Ordered Sig/Gaurav Route Start Time Stop Time Status Last Admin Dose Admin Ceftriaxone Sodium 50 ml @ 100 mls/hr DAILY@09 IV 12/28/24 09:00 12/30/24 08:41 100 MLS/HR Metronidazole 100 ml @ 100 mls/hr Q8HR IV 12/28/24 06:00 12/30/24 05:42 100 MLS/HR Pantoprazole Sodium 40 mg DAILY IV 12/28/24 10:00 12/30/24 08:41 40 MG Phenylephrine HCl 250 ml @ 30 mls/hr Q8H20M IV 12/28/24 07:45 12/29/24 00:22 48.75 MLS/HR Norepinephrine Bitartrate 32 mg/ Sodium Chloride 250 ml @ 0.938 mls/ hr Q24H IV 12/28/24 11:30 12/30/24 05:29 0.938 MLS/HR Hydrocortisone Sodium Succinate 100 mg Q8HR IV 12/28/24 22:00 12/30/24 14:03 100 MG Acetaminophen 650 mg Q6HP PRN PO 12/28/24 22:45 12/28/24 23:14 650 MG Enoxaparin Sodium 30 mg DAILY SC 12/29/24 10:00 12/30/24 08:43 30 MG Lactated Ringer's 1,000 ml @ 75 mls/hr [id number] IV 12/30/24 13:15 12/30/24 14:03 75 MLS/HR Laboratory Results Laboratory Tests 12/30/24 04:34 Chemistry Test 12/30/24 04:34 Calcium Level 9.0 mg/dL (8.7-10.4) Urinalysis Test 12/27/24 21:45 Urine Color Brown (Yellow) H Urine Clarity Ex.turbid (Clear) Urine pH 6.0 (5.0-9.0) Urine Specific [place] 1.014 (1.001-1.035) Urine Protein 2+ (Negative) H Urine Ketones Negative (Negative) Urine Blood 2+ /uL (Negative) H Urine Nitrite Negative (Negative) Urine Bilirubin Negative (Negative) Urine Urobilinogen Normal mg/dL (Negative) Urine Leukocyte Esterase 3+ /uL (Negative) Urine RBC 208 /hpf (0 - 4) Urine WBC Clumps Present /hpf (None Seen) Urine Microscopic WBC 4972 /HPF (0-5) H Urine Squamous Epithelial Cells Few /hpf (<5) Urine Bacteria Few /hpf (None Seen) H Urine Creatinine 226.91 mg/dL (30.0-125.0) H Urine Sodium 68 mmol/L (40-220) Urine Glucose Normal mg/dL (Normal) Urine Total Protein 289.4 mg/dL (1-14) H Microbiology Microbiology Date/Time Source Procedure Growth Status 12/28/24 03:35 Urine - [place] Urine Culture - Preliminary Resulted 12/28/24 03:30 Nose MRSA Screen - Final Complete 12/27/24 17:55 Blood Blood Culture - Preliminary NO GROWTH AFTER 48 HOURS OF INCUBATION. Resulted Assessment/Plan Assessment/Plan Septic shock requiring pressors due to acute cystitis/pyelonephritis due to staghorn calculi Acute metabolic (uremic) encephalopathy Acute renal failure likely due to bilateral staghorn calculi Acute anion gap metabolic acidosis with respiratory compensation Right ureteral stent, status post double-J ureteral stent placement Hyponatremia, resolved Acute cholelithiasis without cholecystitis History of H pylori, history of tuberculosis Gastroenteritis, likely infectious, resolved Type 2 diabetes mellitus, on prediabetes range Plan -chest x-ray was grossly unremarkable -CT of the abdomen showed bilateral dense staghorn calculi without hydronephrosis, there was a right ureteral stent in place. There was cholelithiasis without cholecystitis -continue IV ceftriaxone and Flagyl -Consulted urology for staghorn renal calculi -Discontinue tamsulosin 0.4 mg daily -hemoglobin A1c was 5.7% currently on prediabetes range. No need of medications at this time -Will continue to monitor kidney function, no need for HD at this time -keep Marie catheter and monitor strict in's and out Creat trending down to 2.9 now Goals of care discussed with the patient and at bedside for 20min, FULL CODE 120 minutes of critical care time Plan discussed with: Patient Date of Service: December 30, 2024 Billing Provider: BELINDA PARIS MD Common Visit Codes: [id number] INP/OBS CARE(HIGH), [id number] CARE 30-74 MIN BELINDA PARIS MD December 30, 2024 15:13
[2024-12-31] VITALS (37 sets, daily range): BP systolic 107–155; BP diastolic 62–90; PULSE 32–88; RESP 10–21; TEMP 98–98.4; O2SAT 92–100
[2024-12-31 05:46] LABS: Potassium 3.8 mmol/L (3.5-5.1)
[2024-12-31 05:47] LABS: Anion Gap 9 (5-15); Calcium 9.1 mg/dL (8.7-10.4); Carbon Dioxide 24 mmol/L (20-31)
[2024-12-31 05:52] LABS: BUN/Creatinine Ratio 20.2 (10.0-20.0)
[2024-12-31 05:59] LABS: Blood Urea Nitrogen 52 mg/dL (9-23); Chloride 113 mmol/L (98-107); Glucose 144 mg/dL (74-106); Sodium 146 mmol/L (136-145)
[2024-12-31 06:28] LABS: Basophils # (auto) 0 10 ^3/uL (0-0.2); Basophils % (auto) 0.1 % (0.0-2.0); Eosinophils # (auto) 0 10 ^3/uL (0-0.8); Eosinophils % (auto) 0.1 % (0.0-7.0); Hemoglobin 10.8 g/dL (12.2-16.2); Lymphocytes # (auto) 1.5 10 ^3/uL (0.4-5.4); Lymphocytes % (auto) 22.5 % (10.0-50.0); Mean Corpuscular Hemoglobin 27.6 pg (28.0-32.0); Mean Corpuscular Hgb Conc. 33.6 g/dL (32.0-36.0); Mean Corpuscular Volume 82.1 fL (80.0-100.0); Monocytes # (auto) 0.4 10 ^3/uL (0-1.3); Monocytes % (auto) 6.1 % (0.0-12.0); Neutrophils # (auto) 4.8 10 ^3/uL (1.6-8.6); Neutrophils % (auto) 71.2 % (37.0-80.0); Nucleated Red Blood Cells % 0.1 %; Platelet Count (auto) 127 10^3/uL (140-450); Red Cell Distribution Width 15.8 % (11.8-14.3); White Blood Cell 6.8 10^3/uL (4.4-10.8)
--- NOTE | 2024-12-31 08:16 | ECG ---
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
[2024-12-31] MEDS: POTASSIUM EFFERVESENT TAB 25 MEQ PO ONE (08:53)
--- NOTE | 2024-12-31 11:34 | DVHINCON2 ---
Date of service: December 31, 2024 Referring Physician Hospitalist Reason for Consultation bilateral staghorn calculi with displaced left Double J stent History of Present Illness History Source: Patient, RN Notes, Notes Exam Limitations: Clinical condition HPI 54 yo female with bilateral staghorn renal calculi and a chronically displaced right sided double J stent placed between 4 and 5 years ago in [facility] per Jhon. Pt is admitted to [facility] for sepsis and ISIDRO. Home Meds Reported Medications Omeprazole (Omeprazole Dr) 20 Mg Cap, 1 CAP PO BID 12/28/24 Cholecalciferol (Gnp Vitamin D) 1,000 Unit Tab, 1 TAB PO DAILY 12/28/24 Past Medical History Patient Family History: Diabetes mellitus (DAD AND SISTER) G8 FATHER G8 SISTER H&P Exam Vital Signs Vital Signs Date Time Temp Pulse Resp B/P (MAP) Pulse Ox O2 Delivery O2 Flow Rate FiO2 12/31/24 08:00 55 12 98 Room Air* 0 21 12/31/24 07:00 121/78 (92) 12/31/24 04:00 98.3 98.3 Labs/Xrays [place] [address] Ph: [phone] DIAGNOSTIC IMAGING Diagnostic Imaging Report : [id number] Signed PATIENT: DARLING HEARNCT: [id number] UNIT: [id number] : 1970 LOC: ER ROOM / BED: / AGE / SEX: 54 / F ADM STATUS: REG ER SERVICE 23 ORDERING PHYSICIAN: LUCY DIEGO MD PROCEDURE(s): KIDUS - KIDNEY REASON: isidro ORDER NUMBER(s): [id number], ACCESSION NUMBER(s): [id number] INDICATION: isidro TECHNIQUE: Multiple real-time sonographic images of the kidneys and bladder were obtained. COMPARISON: None FINDINGS: The right kidney measures 9.1 cm in length, which is normal in size. There is normal echogenicity of the right kidney. No hydronephrosis. Multiple calculi are noted in the right kidney no hydronephrosis The left kidney measures 11.3 cm in length, which is normal in size. There is normal echogenicity of the left kidney. Multiple calculi are noted in the left kidney no hydronephrosis No large intraluminal masses are seen in the bladder. Prior to voiding the bladder volume measures volume 23 cc. Patient had no urge to void. IMPRESSION: 1. Multiple bilateral renal calculi no hydronephrosis. Consider CT abdomen and pelvis for further evaluation. 2. Echogenic avascular structure noted in the bladder with twinkle artifact. 3. Gallstones noted in the gallbladder ATED BY: MARIO KELSEY Jr., DO DICTATED DATE/TIME: 12/27/242021 SIGNED BY: MARIO KELSEY Jr., SIGNED DATE/TIME: 12/27/242021 CC: [place] [address] Ph: [phone] DIAGNOSTIC IMAGING Diagnostic Imaging Report : [id number] Signed PATIENT: DARLING HEARNCT: [id number] UNIT: [id number] : 1970 LOC: ER ROOM / BED: / AGE / SEX: 54 / F ADM STATUS: REG ER SERVICE 1737 ORDERING PHYSICIAN: VERONICA HUNTLEY DO PROCEDURE(s): ABPL - CT AB PEL WO CON-NO ORAL OR IV REASON: hypotensive, n/v/d bodyaches ORDER NUMBER(s): [id number], ACCESSION NUMBER(s): [id number] Exam: CT CT AB PEL WO CON-NO ORAL OR IV History: hypotensive, n/v/d bodyaches Comparison Study: None available at time of dictation. TECHNIQUE: Multidetector CT of the abdomen was performed from lung bases to pubic symphysis. Imaging was performed without IV contrast. Axial, coronal and sagittal multiplanar reformats were obtained from the axial data set by the technologist. Radiation Dose Information: CT Dose: CTDI volume is 22.49 mGy. Dose-length product is 1395.23 mGy*cm FINDINGS: Evaluation of solid organs is limited due to lack of intravenous contrast use. Findings: Lung Bases: No acute or significant lung base finding. Normal heart size. No pleural or pericardial effusion. Liver: The liver is normal in size. No focal lesions. Gallbladder and Biliary Tree: Unremarkable Spleen: Unremarkable Pancreas: The pancreas is grossly normal in appearance. Adrenal Glands: Unremarkable Kidneys: Bilateral staghorn calculi. Double-J ureteral stent in place on the right. Proximal stent appears to be in place in the pelvis or proximal ureter. No hydronephrosis bilaterally. Correlate with renal function tests. Bladder: Grossly unremarkable for degree of distention. Bowel: The stomach is grossly normal in appearance. Small bowel and colon are normal in caliber and distribution. The appendix is not visualized; however, no secondary findings of acute appendicitis identified. Ascites: Absent Lymphadenopathy: No mesenteric, retroperitoneal or periportal lymphadenopathy. Abdominal Wall and Mesentery: Unremarkable. Vasculature: The visualized abdominal aorta is normal in size and caliber. Evaluation of abdominal and pelvic vessels is limited due to lack of intravenous contrast. Pelvic Organs: Unremarkable Musculoskeletal: No aggressive focal bony lesions, acute fractures or dislocation. Soft tissues: Unremarkable IMPRESSION: 1. Dense bilateral renal calculi without hydronephrosis. 2. Right ureteral stent in place. The proximal pigtail appears to be in the proximal ureter and there is no dilatation of the right renal pelvis. Correlate with renal function studies. Patient may be in renal failure. 3. Cholelithiasis Radiation optimization: All CT scans at this facility use at least one of these dose optimization techniques: automated exposure control mA and/or kV adjustment per patient size (includes targeted exams where dose is matched to clinical indication) or iterative reconstruction. ATED BY: MARIO KELSEY Jr., DO DICTATED DATE/TIME: 12/27/242101 SIGNED BY: MARIO KELSEY Jr., SIGNED DATE/TIME: 12/27/242101 CC: Labs Test 12/31/24 04:57 12/29/24 13:04 12/29/24 00:29 12/28/24 09:19 Range/Units White Blood Count 6.8 # 4.4-10.8 10^3/uL Red Blood Count 3.90 L 4.0-5.20 10^6/uL Hemoglobin 10.8 L 12.2-16.2 g/dL Hematocrit 32.0 L 36.0-46.0 % Mean Corpuscular Volume 82.1 80.0-100.0 fL Mean Corpuscular Hemoglobin 27.6 L 28.0-32.0 pg Mean Corpuscular Hemoglobin Concent 33.6 32.0-36.0 g/dL Red Cell Distribution Width 15.8 H 11.8-14.3 % Platelet Count 127 L 140-450 10^3/uL Mean Platelet Volume 9.5 6.9-10.8 fL Neutrophils (%) (Auto) 71.2 37.0-80.0 % Lymphocytes (%) (Auto) 22.5 10.0-50.0 % Monocytes (%) (Auto) 6.1 0.0-12.0 % Eosinophils (%) (Auto) 0.1 0.0-7.0 % Basophils (%) (Auto) 0.1 0.0-2.0 % Neutrophils # (Auto) 4.8 1.6-8.6 10 ^3/uL Lymphocytes # (Auto) 1.5 0.4-5.4 10 ^3/uL Monocytes # (Auto) 0.4 0-1.3 10 ^3/uL Eosinophils # (Auto) 0 0-0.8 10 ^3/uL Basophils # (Auto) 0 0-0.2 10 ^3/uL Nucleated Red Blood Cells 0.1 % Sodium Level 146 H 136-145 mmol/L Potassium Level 3.8 3.5-5.1 mmol/L Chloride Level 113 H 98-107 mmol/L Carbon Dioxide Level 24 20-31 mmol/L Anion Gap 9 5-15 Blood Urea Nitrogen 52 H 9-23 mg/dL Creatinine 2.58 H 0.550-1.02 mg/dL Glomerular Filtration Rate Calc 22 >90 mL/min BUN/Creatinine Ratio 20.2 H 10.0-20.0 Serum Glucose 144 H 74-106 mg/dL Calcium Level 9.1 8.7-10.4 mg/dL Magnesium Level 2.2 1.6-2.6 mg/dL Triglycerides Level 93 < 150 mg/dL Cholesterol Level 127 < 200 mg/dL LDL Cholesterol 85 < 100 mg/dL HDL Cholesterol 29 L 40-59 mg/dL Blood Gas Specimen Type Arterial Blood Gas Sample Site Left radial Blood Gas Patient Temperature 37.0 Arterial Blood Date Drawn [id number] Arterial Blood pH 7.403 7.350-7.450 Arterial Blood Partial Pressure CO2 27.0 L 32.0-45.0 mmHg Arterial Blood Partial Pressure O2 117.4 H 83.0-108.0 mmHg Arterial Blood HCO3 16.5 L 21.0-28.0 mmol/L Arterial Blood Oxygen Saturation 97.6 94.0-98.0 % Arterial Blood Base Excess -6.8 L -2.0-3.0 mmol/L Arterial Blood Oxyhemoglobin 96.7 94.0-98.0 % Arterial Blood Carboxyhemoglobin 0.3 L 0.5-1.5 % Arterial Blood Methemoglobin 0.6 0.0-1.5 % Sree Test Yes Blood Gas Total Hemoglobin 13.00 12.0-16.0 g/dL Blood Gas Liter Flow 2.00 Blood Gas Modality Nasal cannula FiO2 % 28.0 Total Bilirubin 0.3 0.2-1.0 mg/dL Aspartate Amino Transferase (AST) 9 L 13-40 U/L Alanine Aminotransferase (ALT) 11 7-40 U/L Alkaline Phosphatase 72 46-116 U/L Total Protein 6.5 5.7-8.2 g/dL Albumin 3.4 3.2-4.8 g/dL Free Thyroxine (T4) Calculated 1.07 0.89-1.76 ng/dL Test 12/28/24 04:55 12/27/24 23:57 12/27/24 21:45 12/27/24 20:45 Range/Units Blood Gas Critical Value Read Back Yes Blood Gas Notified Whom Dr. bautista Blood Gas Notified Time [id number] Blood Gas Notified By Manager Water burke licea Prothrombin Time 10.6 9.3-11.8 sec Prothrombin Time INR 1.00 0.9-1.15 Activated Partial Thromboplast Time 25.4 24.5-34.5 SEC Hemoglobin A1c 5.7 <5.7 % A1C Phosphorus Level 6.6 H 2.4-5.1 mg/dL Vitamin B12 Level > 4000 H 211-911 pg/mL Vitamin D 25-Hydroxy 46.9 30.0-100 ng/mL Thyroid Stimulating Hormone (TSH) 0.11 L 0.55-4.78 uIU/mL Parathyroid Hormone (Intact) 100.3 H 18.4-80.1 pg/mL Urine Color Brown H Yellow Urine Clarity Ex.turbid Clear Urine pH 6.0 5.0-9.0 Urine Specific [place] 1.014 1.001-1.035 Urine Protein 2+ H Negative Urine Ketones Negative Negative Urine Blood 2+ H Negative /uL Urine Nitrite Negative Negative Urine Bilirubin Negative Negative Urine Urobilinogen Normal Negative mg/dL Urine Leukocyte Esterase 3+ Negative /uL Urine RBC 208 0 - 4 /hpf Urine WBC Clumps Present None Seen /hpf Urine Microscopic WBC 4972 H 0-5 /HPF Urine Squamous Epithelial Cells Few <5 /hpf Urine Bacteria Few H None Seen /hpf Urine Creatinine 226.91 H 30.0-125.0 mg/dL Urine Sodium 68 40-220 mmol/L Urine Glucose Normal Normal mg/dL Urine Total Protein 289.4 H 1-14 mg/dL Troponin I High Sensitivity 4 </=34 ng/L Test 12/27/24 18:00 12/27/24 17:55 12/27/24 17:28 Range/Units Influenza Type A Antigen Negative Negative Influenza Type B Antigen Negative Negative SARS-CoV-2 Antigen (Rapid) Negative NEGATIVE Lactic Acid Level 0.9 0.4-2.0 mmol/L B-Type Natriuretic Peptide 9.41 0-100 pg/mL POC Glucose 125 H 70-106 mg/dl Microbiology Date/Time Source Procedure Growth Status 12/28/24 03:35 Urine - Kenny Port Urine Culture - Final Proteus mirabilis Complete 12/28/24 03:30 Nose MRSA Screen - Final Complete 12/27/24 17:55 Blood Blood Culture - Preliminary NO GROWTH AFTER 72 HOURS OF INCUBATION. Resulted Assessment/Plan Problem List: (1) Sepsis due to Proteus species (2) Ureteral stent displacement (3) Staghorn calculus (4) ISIDRO (acute kidney injury) (5) UTI (urinary tract infection) (6) Retained ureteral stent (7) Dehydration (8) Acute renal failure Plan This is a high-risk urology patient with a complex stone burden and sepsis who requires urgent definitive urologic care outside of the surgical capabilities of this facility and surgeon availability (i.e. PCNL and advanced stone burden management) to safely manage this patient. Mrs. Hearn requires semiurgent endourologic intervention at a higher level of care facility. Therefore we recommend transfer to a tertiary center with urology service capable of advanced stone surgery for definitive management and to reduce morbidity and mortality risk. A NM renal scan has been ordered to evaluate obstruction and split function. keep kenny catheter to gravity drainage continue medical management of other conditions per primary team. Plan discussed with: Patient, Spouse, Other JANIS LAGUNAS NP December 31, 2024 11:34
[2024-12-31] MEDS: LACTATED RINGER'S 1,000 ML IV SCH (12:15)
--- NOTE | 2024-12-31 12:52 | DVH ---
RIGHT Upper Extremity Venous Duplex Clinical History: R/O DVT, edema Comparison: None Findings: Duplex Doppler evaluation of the venous system of the RIGHT lower neck and upper extremity including color Doppler and spectral/pulsed waveform analysis was performed. The internal jugular vein demonstrates appropriate compressibility and waveform variability. The subclavian vein is patent on color Doppler evaluation without intraluminal thrombus and demonstra megan waveform variability. The visualized portion of the brachiocephalic vein is patent on color Doppler evaluation without intr aluminal thrombus and demonstrates waveform variability. The axillary vein demonstrates appropriate compressibility and waveform variability. The brachial veins demonstrate appropriate compressibility and patency on Doppler evaluation. The basilic vein demonstrates appropriate compressibility and patency on Doppler evaluation. The cephalic vein demonstrates appropriate compressibility and patency on Doppler evaluation. Impression: No venous thrombus identified in the RIGHT upper extremity vessels evaluated above. If clinical concern/symptoms persist or worsen, short-interval follow-up study is suggested.
--- NOTE | 2024-12-31 13:10 | DVHPN2 ---
Progress Note Date Seen: December 31, 2024 Resident Creating Document: MARKIE SHOOK RESIDENT Has the PT tested + for MRSA If YES, has PT been informed?: No Medical Necessity Reason Pt with a Central, PICC or Fol: Yes The following are medically ne: Central Line, Kenny Catheter Reason for kenny catheter: Strict I&O Subjective Review of Systems Patient seen and examined at bedside. Patient states that he is feeling well overall. Patient is off vasopressors at this time. Creatinine has been significantly improving compared to admission, current creatinine is 2.58 and BUN 52. Lactate ranger was decreased from 75 cc/hour to 50 cc/hour. Urology saw and assessed the patient and determined that the patient needs to be transferred to higher level of care for possible percutaneous nephrolithotomy and advanced stone burden management. Patient denies fever/chills, abdominal tenderness, flank pain, dysuria, difficulty urinating or any other symptom at this time. ROS Constitutional: Denies weight loss, fever and chills. HEENT: Denies changes in vision and hearing. Respiratory: Denies shortness of breath and cough Cardiovascular: Denies chest discomfort or palpitations GI: Denies abdominal pain, nausea, vomiting and diarrhea. : Denies dysuria and urinary frequency. Musculoskeletal: Denies myalgias and joint pain Skin: Denies rash and pruritus. Neurological: Denies dizziness, headache, vision or hearing problems Objective vital signs Vital Sign Date Time Temp Pulse Resp B/P (MAP) Pulse Ox O2 Delivery O2 Flow Rate FiO2 12/31/24 08:00 55 12 98 Room Air* 0 21 12/31/24 08:00 98.0 131/81 (98) 98.0 Total Intake and Output 12/30/24 12/30/24 12/31/24 14:59 22:59 06:59 Intake Total 1153 ml 1100 ml 940 ml Output Total 850 ml 750 ml Balance 1153 ml 250 ml 190 ml medications Current Medications Medications Dose Ordered Sig/Gaurav Route Start Time Stop Time Status Last Admin Dose Admin Ceftriaxone Sodium 50 ml @ 100 mls/hr DAILY@09 IV 12/28/24 09:00 12/31/24 08:54 100 MLS/HR Metronidazole 100 ml @ 100 mls/hr Q8HR IV 12/28/24 06:00 12/31/24 05:39 100 MLS/HR Pantoprazole Sodium 40 mg DAILY IV 12/28/24 10:00 12/31/24 10:43 40 MG Hydrocortisone Sodium Succinate 100 mg Q8HR IV 12/28/24 22:00 12/31/24 05:39 100 MG Acetaminophen 650 mg Q6HP PRN PO 12/28/24 22:45 12/28/24 23:14 650 MG Enoxaparin Sodium 30 mg DAILY SC 12/29/24 10:00 12/31/24 09:33 30 MG Lactated Ringer's 1,000 ml @ 50 mls/hr Q20H IV 12/31/24 12:15 Examination Physical Examination: General: Patient alert and oriented in person, place and time. Patient following commands. HEENT: Normocephalic, atraumatic, moist mucous membranes. Central line in place Respiratory/pulmonary: Clear lungs bilaterally, no associated crackles or wheezes. Cardiovascular: Normal heart sounds S1 and S2 with no associated murmurs Abdomen: Abdomen nondistended, there is no pain to palpation in any of the abdominal quadrants, no palpable masses. Kenny's in place Extremities: There is no peripheral edema present at the lower extremities. Peripheral Pulses: 3+ Radial (R). 3+ Radial (L). 3+ Dorsalis pedis (R). 3+ Dorsalis pedis(L) Skin: No rashes or pruritus, there is no sacral edema present at this time. Neurological: Intact cranial nerves with no focal neurologic deficits laboratory and microbiology Laboratory Tests 12/31/24 04:57 Test 12/31/24 04:57 Range/Units Serum Glucose 144 H 74-106 mg/dL Microbiology Date/Time Source Procedure Growth Status 12/28/24 03:35 Urine - Kenny Port Urine Culture - Final Proteus mirabilis Complete 12/28/24 03:30 Nose MRSA Screen - Final Complete 12/27/24 17:55 Blood Blood Culture - Preliminary NO GROWTH AFTER 72 HOURS OF INCUBATION. Resulted Problem List/Assessment/Plan Problem List/Assessment/Plan Assessment/plan Acute kidney injury on chronic kidney disease/ ATN in the setting of septic shock likely due to UTI Chronic Bilateral large staghorn calculi status post 4 lithotripsy interventions Right ureteral s/p double-J ureteral stent in place Anion gap metabolic acidosis, resolving Hyponatremia, resolving Uremic encephalopathy ruled out Septic shock requiring pressor support likely secondary to UTI History of H pylori history of tuberculosis Cholelithiasis based on abdominal CT scan Type 2 obesity Plan -Decrease lactate ringer to 50cc/hr -Urology evaluated patient and determined to transfer patient to [facility] for possible percutaneous nephrolithotomy and advanced stone burden management. -Not requiring pressors at this time -Cr and BUN significantly improving compare to admission. from Cr 9.01 --> now Cr 2.58 and BUN 52 -Continue IV abs per hospitalist team -Patient was having right upper extremity swelling, we ordered R upper ext venous doppler ultrasound -Avoid nephrotoxic drugs -Will continue monitoring urine output, keep kenny on place -Monitor kidney function which is improving, No need for HD Goals of care discussed with the patient at bedside for >25min, FULL CODE Plan discussed with Dr. Diego Addendum Patient seen and examined, plan discussed with resident. Agree with above, we will follow closely Plan discussed with: Patient My Orders My Orders Orders - MARKIE SHOOK RESIDENT Procedure Category Date Status Time Rt Upper Dvt US 12/31/24 Resulted 10:39 Dietary Evaluation Review Recommendations by RD: Increase Calorie Intake Comments: 1) Initiate Nepro bid d/t decreased appetite. Encourage optimal PO intake 2) Refer to outpatient RD/[facility] for weight management and prediabetes education 3) Follow-up with nephrology and cardiology 4) Continue to monitor I&O, labs, and skin integrity Expected Outcomes/Goals: 1) appetite and labs to improve 2) diet to advance 3) f/u in 3-5 days MARKIE SHOOK December 31, 2024 13:10 LUCY DIEGO MD December 31, 2024 15:38
--- NOTE | 2024-12-31 15:49 | DVHDSRES ---
Discharge Summary Date of Admission Resident Creating Document: MARKIE SHOOK RESIDENT December 27, 2024 at 22:59 Date of Discharge: December 31, 2024 Admitting Diagnosis Nausea and vomiting Labs/Diagnostic Data: Laboratory Results Test 12/31/24 04:57 12/29/24 13:04 12/29/24 00:29 12/28/24 09:19 White Blood Count 6.8 10^3/uL (4.4-10.8) Red Blood Count 3.90 10^6/uL (4.0-5.20) Hemoglobin 10.8 g/dL (12.2-16.2) Hematocrit 32.0 % (36.0-46.0) Mean Corpuscular Volume 82.1 fL (80.0-100.0) Mean Corpuscular Hemoglobin 27.6 pg (28.0-32.0) Mean Corpuscular Hemoglobin Concent 33.6 g/dL (32.0-36.0) Red Cell Distribution Width 15.8 % (11.8-14.3) Platelet Count 127 10^3/uL (140-450) Mean Platelet Volume 9.5 fL (6.9-10.8) Neutrophils (%) (Auto) 71.2 % (37.0-80.0) Lymphocytes (%) (Auto) 22.5 % (10.0-50.0) Monocytes (%) (Auto) 6.1 % (0.0-12.0) Eosinophils (%) (Auto) 0.1 % (0.0-7.0) Basophils (%) (Auto) 0.1 % (0.0-2.0) Neutrophils # (Auto) 4.8 10 ^3/uL (1.6-8.6) Lymphocytes # (Auto) 1.5 10 ^3/uL (0.4-5.4) Monocytes # (Auto) 0.4 10 ^3/uL (0-1.3) Eosinophils # (Auto) 0 10 ^3/uL (0-0.8) Basophils # (Auto) 0 10 ^3/uL (0-0.2) Nucleated Red Blood Cells 0.1 % Sodium Level 146 mmol/L (136-145) Potassium Level 3.8 mmol/L (3.5-5.1) Chloride Level 113 mmol/L (98-107) Carbon Dioxide Level 24 mmol/L (20-31) Anion Gap 9 (5-15) Blood Urea Nitrogen 52 mg/dL (9-23) Creatinine 2.58 mg/dL (0.550-1.02) Glomerular Filtration Rate Calc 22 mL/min (>90) BUN/Creatinine Ratio 20.2 (10.0-20.0) Serum Glucose 144 mg/dL (74-106) Calcium Level 9.1 mg/dL (8.7-10.4) Magnesium Level 2.2 mg/dL (1.6-2.6) Triglycerides Level 93 mg/dL (< 150) Cholesterol Level 127 mg/dL (< 200) LDL Cholesterol 85 mg/dL (< 100) HDL Cholesterol 29 mg/dL (40-59) Blood Gas Specimen Type Arterial Blood Gas Sample Site Left radial Blood Gas Patient Temperature 37.0 Arterial Blood Date Drawn [id number] Arterial Blood pH 7.403 (7.350-7.450) Arterial Blood Partial Pressure CO2 27.0 mmHg (32.0-45.0) Arterial Blood Partial Pressure O2 117.4 mmHg (83.0-108.0) Arterial Blood HCO3 16.5 mmol/L (21.0-28.0) Arterial Blood Oxygen Saturation 97.6 % (94.0-98.0) Arterial Blood Base Excess -6.8 mmol/L (-2.0-3.0) Arterial Blood Oxyhemoglobin 96.7 % (94.0-98.0) Arterial Blood Carboxyhemoglobin 0.3 % (0.5-1.5) Arterial Blood Methemoglobin 0.6 % (0.0-1.5) Sree Test Yes Blood Gas Total Hemoglobin 13.00 g/dL (12.0-16.0) Blood Gas Liter Flow 2.00 Blood Gas Modality Nasal cannula FiO2 % 28.0 Total Bilirubin 0.3 mg/dL (0.2-1.0) Aspartate Amino Transferase (AST) 9 U/L (13-40) Alanine Aminotransferase (ALT) 11 U/L (7-40) Alkaline Phosphatase 72 U/L (46-116) Total Protein 6.5 g/dL (5.7-8.2) Albumin 3.4 g/dL (3.2-4.8) Free Thyroxine (T4) Calculated 1.07 ng/dL (0.89-1.76) Test 5/2/25 04:55 12/27/24 23:57 12/27/24 21:45 12/27/24 20:45 Blood Gas Critical Value Read Back Yes Blood Gas Notified Whom Dr. bautista Blood Gas Notified Time [id number] Blood Gas Notified By [employer] Supervisor burke licea Prothrombin Time 10.6 sec (9.3-11.8) Prothrombin Time INR 1.00 (0.9-1.15) Activated Partial Thromboplast Time 25.4 SEC (24.5-34.5) Hemoglobin A1c 5.7 % A1C (<5.7) Phosphorus Level 6.6 mg/dL (2.4-5.1) Vitamin B12 Level > 4000 pg/mL (211-911) Vitamin D 25-Hydroxy 46.9 ng/mL (30.0-100) Thyroid Stimulating Hormone (TSH) 0.11 uIU/mL (0.55-4.78) Parathyroid Hormone (Intact) 100.3 pg/mL (18.4-80.1) Urine Color Brown (Yellow) Urine Clarity Ex.turbid (Clear) Urine pH 6.0 (5.0-9.0) Urine Specific [place] 1.014 (1.001-1.035) Urine Protein 2+ (Negative) Urine Ketones Negative (Negative) Urine Blood 2+ /uL (Negative) Urine Nitrite Negative (Negative) Urine Bilirubin Negative (Negative) Urine Urobilinogen Normal mg/dL (Negative) Urine Leukocyte Esterase 3+ /uL (Negative) Urine RBC 208 /hpf (0 - 4) Urine WBC Clumps Present /hpf (None Seen) Urine Microscopic WBC 4972 /HPF (0-5) Urine Squamous Epithelial Cells Few /hpf (<5) Urine Bacteria Few /hpf (None Seen) Urine Creatinine 226.91 mg/dL (30.0-125.0) Urine Sodium 68 mmol/L (40-220) Urine Glucose Normal mg/dL (Normal) Urine Total Protein 289.4 mg/dL (1-14) Troponin I High Sensitivity 4 ng/L (</=34) Test 12/27/24 18:00 12/27/24 17:55 12/27/24 17:28 Influenza Type A Antigen Negative (Negative) Influenza Type B Antigen Negative (Negative) SARS-CoV-2 Antigen (Rapid) Negative (NEGATIVE) Lactic Acid Level 0.9 mmol/L (0.4-2.0) B-Type Natriuretic Peptide 9.41 pg/mL (0-100) POC Glucose 125 mg/dl (70-106) Other Laboratory Tests 12/31/24 04:57 Brief Hx & Hospital Course: H&P:This is a 62-year-old female with past medical history of prediabetes, hypertension, staghorn calculi, H pylori three months ago, tuberculosis, who presented to the ED with chief complaint of generalized weakness associated with nausea, vomiting and diarrhea. The patient states that one week ago she started developing nausea vomiting and diarrhea after having a meal and since three days ago she started feeling generalized weakness and fatigue. Upon admission, blood pressure was in the lower side at 84/57 patient was slightly tachycardic. BNP was showing a creatinine of 7.69 and BUN of 93. Initial ABG was showing severe metabolic acidosis with respiratory compensation per bolivar formula. CT of the abdomen is showing dense bilateral staghorn calculi without hydronephrosis and a right ureteral stent in place. Renal ultrasound was also showing multiple bilateral renal calculi with no hydronephrosis. Patient was coursing with urosepsis for which was started on Levophed and phenylephrine. Patient was also started on IV Flagyl and ceftriaxone. Nephrology was consulted and the patient was admitted for further assessment and management. Hospital course: Initially patient was diagnosed with septic shock likely related to pyelonephritis due to staghorn calculi, treated with IV antibiotic ceftriaxone and Flagyl, pressors with Levophed and phenylephrine, continue with IV fluid as per Nephrology recommendation. Urology consultation was done for staghorn renal calculi. Over the course of hospitalization, patient's vasopressor requirement improved, off vasopressor with map greater than 65, as per Urology patient will require no PCNL and advanced stone burden management for complex stone burden in sepsis, given outside of surgical capability of our facility, patient will be transferred to higher level of care for advanced stone burden management. Condition at Discharge: Guarded Final Diagnosis/Problems List Septic shock due to acute pyelonephritis ISIDRO on CKD due to ATN/septic shock Chronic bilateral large staghorn calculi, multiple lithotripsy intervention before Ureteral stent displacement Anion gap metabolic acidosis Hyponatremia Cholelithiasis, no acute cholecystitis Morbid obesity BMI 35.1 kg/m2 Uremic encephalopathy ruled out Staghorn calculus History of H pylori History of tuberculosis Acute metabolic encephalopathy Type 2 diabetes mellitus Discharge Disposition: Acute Care Facility Discharge Statement: "Patient was advised to return to the ER or call 911 if any headaches, dizziness, shortness of breath, chest pain, abdominal pain, bleeding, fevers, or worsening of medical condition. Patient was counseled about treatment plan, medications, possible side effects, patientverbalized understanding. All questions were answered to the best of my ability. This discharge took greater then 30 minutes in planning, reviewing documentation, counseling the patient, and discussing with other team members." ASSESSMENT ASSESSMENT Assessment Date of Service: December 31, 2024 Billing Provider: JUSTIN BARILLAS DO Common Visit Codes: 06131-YKP/OBS DISCH DAY >30min FIFI NASCIMENTO RESIDENT December 31, 2024 15:49 JUSTIN BARILLAS DO December 31, 2024 20:37
[2025-01-01 01:00] VITALS: BP 122/84; PULSE 62; RESP 18; TEMP 98.3; O2SAT 98
[2025-01-01 05:00] VITALS: BP 120/65; PULSE 67; RESP 17; TEMP 97.7; O2SAT 97
[2025-01-01 07:05] LABS: Sodium 145 mmol/L (136-145)
[2025-01-01 07:06] LABS: Anion Gap 10 (5-15); Calcium 8.9 mg/dL (8.7-10.4); Carbon Dioxide 23 mmol/L (20-31)
[2025-01-01 07:11] LABS: BUN/Creatinine Ratio 21.1 (10.0-20.0)
[2025-01-01 07:15] LABS: Blood Urea Nitrogen 46 mg/dL (9-23); Chloride 112 mmol/L (98-107); Glucose 151 mg/dL (74-106)
[2025-01-01 08:00] VITALS: PULSE 41; PULSE 80; RESP 17; O2SAT 95
--- NOTE | 2025-01-01 08:22 | ECG ---
[facility] Test Date: 2024-12-29 Test Time: 17:22:49 Pat Name: DARLING HAN Department: Room: 0221T B Gender: F [employer] Entry Clerk: : 1970 Requested By: CHERI CARDOZA Order Number: [id number] Reading MD: Manuel Yates Measurements Intervals [place] Rate: 54 P: 0 VA: 0 QRS: -1 QRSD: 82 T: 17 QT: 440 QTc: 417 Interpretive Statements Atrial fibrillation with slow ventricular response Low voltage QRS Possible Inferior infarct , age undetermined Cannot rule out Anterior infarct , age undetermined Electronically Signed On 01-02-2025 11:48:37 PDT by Manuel Yates Please click the below link to view image of tracing.
[2025-01-01 09:00] VITALS: BP 130/85; PULSE 51; RESP 18; TEMP 97.8; O2SAT 98
[2025-01-01 10:55] LABS: Potassium 4.1 mmol/L (3.5-5.1); Sodium 142 mmol/L (136-145)
[2025-01-01 10:56] LABS: Anion Gap 9 (5-15); Calcium 8.7 mg/dL (8.7-10.4); Carbon Dioxide 22 mmol/L (20-31)
[2025-01-01 11:01] LABS: BUN/Creatinine Ratio 21.2 (10.0-20.0)
[2025-01-01 11:03] LABS: Blood Urea Nitrogen 45 mg/dL (9-23); Chloride 111 mmol/L (98-107); Glucose 253 mg/dL (74-106)
--- NOTE | 2025-01-01 11:08 | MEDREC ---
[facility] ASP Intervention Section I [facility] ASP Intervention: Review courses of therapy (IF ABDOMINAL SYMPTOMS RESOLVED AND NO MORE CONCERNS FOR ABDOMINAL INFECTION - PLEASE CONSIDER D/C METRONIDAZOLE) BASHIR CHEATHAM PHARMACIST January 01, 2025 11:08
--- NOTE | 2025-01-01 11:10 | DVHPN2 ---
Progress Note Date Seen: January 01, 2025 Resident Creating Document: MARKIE SHOOK RESIDENT Has the PT tested + for MRSA If YES, has PT been informed?: No Medical Necessity Reason Pt with a Central, PICC or Fol: Yes The following are medically ne: Central Line, Kenny Catheter Reason for kenny catheter: Strict I&O Subjective Review of Systems Patient seen and examined at bedside. Patient is alert and oriented in person, place and time. Patient states that he is feeling well overall and has no complaints at this time. Patient denies fever/chills, chest pain, shortness of breath, abdominal tenderness or any other associated symptoms. Today, creatinine keeps improving creatinine is 2.18 and BUN is 46. We will discontinue lactated ringer and any fluids at this time since the patient is responding appropriately. We will also recommended to discontinue hydrocortisone since the patient is not anymore on pressors and already completed five days of IV steroids. We explained to the patient that from Nephrology standpoint she is stable to go home or transferred to higher level of care as per hospitalist decision. We will continue monitoring kidney function while patient is in the hospital. ROS Constitutional: Denies weight loss, fever and chills. HEENT: Denies changes in vision and hearing. Respiratory: Denies shortness of breath and cough Cardiovascular: Denies chest discomfort or palpitations GI: Denies abdominal pain, nausea, vomiting and diarrhea. : Denies dysuria and urinary frequency. Musculoskeletal: Denies myalgias and joint pain Skin: Denies rash and pruritus. Neurological: Denies dizziness, headache, vision or hearing problems Objective vital signs Vital Sign Date Time Temp Pulse Resp B/P (MAP) Pulse Ox O2 Delivery O2 Flow Rate FiO2 01/01/25 08:00 80 17 95 Room Air* 0 21 01/01/25 05:00 97.7 120/65 (83) 97.7 Total Intake and Output 12/31/24 12/31/24 01/01/25 15:00 23:00 07:00 Intake Total 325 ml 100 ml 240 ml Output Total 650 ml 300 ml Balance 325 ml -550 ml -60 ml medications Current Medications Medications Dose Ordered Sig/Gaurav Route Start Time Stop Time Status Last Admin Dose Admin Ceftriaxone Sodium 50 ml @ 100 mls/hr DAILY@09 IV 12/28/24 09:00 01/01/25 09:36 100 MLS/HR Metronidazole 100 ml @ 100 mls/hr Q8HR IV 12/28/24 06:00 01/01/25 06:04 100 MLS/HR Pantoprazole Sodium 40 mg DAILY IV 12/28/24 10:00 01/01/25 09:36 40 MG Hydrocortisone Sodium Succinate 100 mg Q8HR IV 12/28/24 22:00 01/01/25 06:04 100 MG Acetaminophen 650 mg Q6HP PRN PO 12/28/24 22:45 12/28/24 23:14 650 MG Enoxaparin Sodium 30 mg DAILY SC 12/29/24 10:00 12/31/24 09:33 30 MG Lactated Ringer's 1,000 ml @ 50 mls/hr Q20H IV 12/31/24 12:15 01/01/25 09:36 50 MLS/HR Examination Physical Examination: General: Patient alert and oriented in person, place and time. Patient following commands. HEENT: Normocephalic, atraumatic, moist mucous membranes. Central line in place Respiratory/pulmonary: Clear lungs bilaterally, no associated crackles or wheezes. Cardiovascular: Normal heart sounds S1 and S2 with no associated murmurs Abdomen: Abdomen nondistended, there is no pain to palpation in any of the abdominal quadrants, no palpable masses. Kenny's in place Extremities: There is no peripheral edema present at the lower extremities. Peripheral Pulses: 3+ Radial (R). 3+ Radial (L). 3+ Dorsalis pedis (R). 3+ Dorsalis pedis(L) Skin: No rashes or pruritus, there is no sacral edema present at this time. Neurological: Intact cranial nerves with no focal neurologic deficits laboratory and microbiology Laboratory Tests 01/01/25 10:30 12/31/24 04:57 Test 01/01/25 10:30 Range/Units Serum Glucose 253 H 74-106 mg/dL Microbiology Date/Time Source Procedure Growth Status 12/28/24 03:35 Urine - Kenny Port Urine Culture - Final Proteus mirabilis Complete 12/28/24 03:30 Nose MRSA Screen - Final Complete 12/27/24 17:55 Blood Blood Culture - Preliminary NO GROWTH AFTER 72 HOURS OF INCUBATION. Resulted Problem List/Assessment/Plan Problem List/Assessment/Plan Assessment/plan Acute kidney injury on chronic kidney disease/ ATN in the setting of septic shock likely due to UTI+obstruction Chronic Bilateral large staghorn calculi status post 4 lithotripsy interventions Right ureteral s/p double-J ureteral stent in place Anion gap metabolic acidosis, resolving Hyponatremia, resolving Uremic encephalopathy ruled out Septic shock requiring pressor support likely secondary to UTI History of H pylori history of tuberculosis Cholelithiasis based on abdominal CT scan Type 2 obesity Plan -Will discontinue fluids at this time. -Recommended to discontinue hydrocortisone since patient is not on pressors at this time and already had 5 days of IV steroids. -Urology evaluated patient and determined to transfer patient to [facility] for possible percutaneous nephrolithotomy and advanced stone burden management. -Not requiring pressors at this time -patient has been cleared from Nephrology standpoint at this point. -kidney function has been improving since admission. Today creatinine is 2.18 and BUN 46 -Continue IV abs per hospitalist team -Patient was having right upper extremity swelling, we ordered R upper ext venous doppler ultrasound, which showed no evidence of DVT at this time. -Avoid nephrotoxic drugs -Will continue monitoring urine output, keep kenny on place -Monitor kidney function which is improving, No need for HD Goals of care discussed with the patient at bedside for >25min, FULL CODE Plan discussed with Dr. Diego Addendum Patient seen and examined, plan discussed with resident. Agree with above, we will follow closely Plan discussed with: Patient Dietary Evaluation Review Recommendations by RD: Increase Calorie Intake Comments: 1) Initiate Nepro bid d/t decreased appetite. Encourage optimal PO intake 2) Refer to outpatient RD/[facility] for weight management and prediabetes education 3) Follow-up with nephrology and cardiology 4) Continue to monitor I&O, labs, and skin integrity Expected Outcomes/Goals: 1) appetite and labs to improve 2) diet to advance 3) f/u in 3-5 days MARKIE SHOOK January 01, 2025 11:10 LUCY DIEGO MD January 01, 2025 17:08
[2025-01-01 13:00] VITALS: BP 127/79; PULSE 61; RESP 18; TEMP 98.2; O2SAT 99
[2025-01-01] MEDS: FUROSEMIDE 40 MG/4 ML VIAL ONE (13:58)
[2025-01-01] MEDS: FUROSEMIDE 40 MG/4 ML VIAL IV ONE (13:58)
--- NOTE | 2025-01-01 15:06 | DVH ---
EXAM: NM NM MAG3 RENAL SCAN DATE OF SERVICE: 01/01/2025 01:04 PM ORDERING PHYSICIAN: FIFI NASCIMENTO REASON FOR EXAM: r/o obstruction TECHNIQUE: During the injection of radiopharmaceutical, posterior flow images of the kidneys were ac quired immediately at one frame per second for one minute, immediately followed by posterior imaging at 30 seconds per frame for 30 minutes. Approximately 20 minutes after the radiopharmaceutical admini stration, the indicated dose of lasix was administered. Regions of interest were drawn around the kid neys and time activity curves were generated. Differential function was calculated. COMPARISON: None FINDINGS: Blood flow images demonstrate symmetric flow to both kidneys with no focal defects. Functional images demonstrate a cortical transit time ([id number]) of 19.2 on the right and 20.2 on the left (normal is < 6 minutes). There is no spontaneous excretion from the kidneys. Differential function (uptake %) is 53.3 % by the right kidney and 46.7 % by the left kidney. After Lasix administration, there was mild excretion from both collecting systems. The post-Lasix mark f-emptying time (diuretic T1/2) was 25.9 minutes on the right and 39.8 minutes on the left, which is within normal limits. IMPRESSION: 1. Unremarkable perfusion with delayed time to peak and mild response to the diuretic, right-greater- than-left. Favored to reflect partial functional obstruction on the right and borderline high-grade f unctional obstruction on the left. 2. Differential renal function (uptake percent) of 53.3 % by the right kidney and 46.7 % by the left.
[2025-01-01 17:00] VITALS: BP 112/64; PULSE 78; RESP 18; TEMP 97.8; O2SAT 99
[2025-01-01] MEDS ORDERED: CIPR250T3 PO (17:00)
--- NOTE | 2025-01-01 17:05 | DVHPNRES ---
Progress Note Date Seen: January 01, 2025 Resident Creating Document: FIFI NASCIMENTO RESIDENT Has the PT tested + for MRSA If YES, has PT been informed?: No Medical Necessity Reason Pt with a Central, PICC or Fol: Yes The following are medically ne: Central Line, Kenny Catheter Reason for kenny catheter: Strict I&O Subjective Review of Systems patient seen and examined at bed side no new complains no fever or abdominal pain Patient is asymptomatic, denying any complaints, ambulatory. Underwent renal scan, continue receiving IV antibiotics. No any other new complaints. Eyes: No Pain, No Vision change, No Conjunctivae inflammation, No Eyelid inflammation, No Other, No Redness ENT: No Ear pain, No Ear discharge, No Nose pain, No Nose discharge, No Nose congestion, No Mouth pain, No Mouth swelling, No Throat pain, No Throat swelling, No Other Cardiovascular: No Chest Pain, No Palpitations, No Orthopnea, No Paroxysmal Noc. Dyspnea, No Edema, No Lt Headedness, No Other Respiratory: No Cough, No Dry, No Shortness of breath, No SOB with excertion, No Wheezing, No Hemoptysis, No Pleuritic Pain, No Sputum, No Other Gastrointestinal: No Nausea, No Vomiting, No Abdominal Pain, No Diarrhea, No Constipation, No Melena, No Hematochezia, No Other Genitourinary: No Dysuria, No Frequency, No Incontinence, No Hematuria, No Retention, No Other Musculoskeletal: No other, No neck pain, No shoulder pain, No arm pain, No back pain, No hand pain, No leg pain, No foot pain Skin: No Rash, No Lesions, No Jaundice, No Bruising, No Other Objective vital signs Vital Sign Date Time Temp Pulse Resp B/P (MAP) Pulse Ox O2 Delivery O2 Flow Rate FiO2 01/01/25 13:00 98.2 61 18 127/79 (95) 99 98.2 01/01/25 08:00 Room Air* 0 21 Total Intake and Output 12/31/24 12/31/24 01/01/25 15:00 23:00 07:00 Intake Total 325 ml 100 ml 240 ml Output Total 650 ml 300 ml Balance 325 ml -550 ml -60 ml medications Current Medications Medications Dose Ordered Sig/Gaurav Route Start Time Stop Time Status Last Admin Dose Admin Ceftriaxone Sodium 50 ml @ 100 mls/hr DAILY@09 IV 12/28/24 09:00 01/01/25 09:36 100 MLS/HR Metronidazole 100 ml @ 100 mls/hr Q8HR IV 12/28/24 06:00 01/01/25 14:00 100 MLS/HR Pantoprazole Sodium 40 mg DAILY IV 12/28/24 10:00 01/01/25 09:36 40 MG Acetaminophen 650 mg Q6HP PRN PO 12/28/24 22:45 12/28/24 23:14 650 MG Enoxaparin Sodium 30 mg DAILY SC 12/29/24 10:00 12/31/24 09:33 30 MG Lactated Ringer's 1,000 ml @ 50 mls/hr Q20H IV 12/31/24 12:15 01/01/25 09:36 50 MLS/HR Examination General: Patient alert and oriented in person, place and time. Patient following commands. HEENT: Normocephalic, atraumatic, moist mucous membranes. Central line in place Respiratory/pulmonary: Clear lungs bilaterally, no associated crackles or wheezes. Cardiovascular: Normal heart sounds S1 and S2 with no associated murmurs Abdomen: Abdomen nondistended, there is no pain to palpation in any of the abdominal quadrants, no palpable masses. Kenny's in place Extremities: There is no peripheral edema present at the lower extremities. Peripheral Pulses: 3+ Radial (R). 3+ Radial (L). 3+ Dorsalis pedis (R). 3+ Dorsalis pedis(L) Skin: No rashes or pruritus, there is no sacral edema present at this time. Neurological: Intact cranial nerves with no focal neurologic deficits laboratory and microbiology Laboratory Tests 01/01/25 10:30 12/31/24 04:57 Test 01/01/25 10:30 Range/Units Serum Glucose 253 H 74-106 mg/dL Microbiology Date/Time Source Procedure Growth Status 12/28/24 03:35 Urine - Kenny Port Urine Culture - Final Proteus mirabilis Complete 12/28/24 03:30 Nose MRSA Screen - Final Complete 12/27/24 17:55 Blood Blood Culture - Preliminary NO GROWTH AFTER 72 HOURS OF INCUBATION. Resulted Problem List/Assessment/Plan Problem List/Assessment/Plan Septic shock due to acute pyelonephritis ISIDRO on CKD due to ATN/septic shock Chronic bilateral large staghorn calculi, multiple lithotripsy intervention before Ureteral stent displacement Anion gap metabolic acidosis Hyponatremia Cholelithiasis, no acute cholecystitis Morbid obesity BMI 35.1 kg/m2 Uremic encephalopathy ruled out Staghorn calculus History of H pylori History of tuberculosis Acute metabolic encephalopathy Type 2 diabetes mellitus H&P:This is a 62-year-old female with past medical history of prediabetes, hypertension, staghorn calculi, H pylori three months ago, tuberculosis, who presented to the ED with chief complaint of generalized weakness associated with nausea, vomiting and diarrhea. The patient states that one week ago she started developing nausea vomiting and diarrhea after having a meal and since three days ago she started feeling generalized weakness and fatigue. Upon admission, blood pressure was in the lower side at 84/57 patient was slightly tachycardic. BNP was showing a creatinine of 7.69 and BUN of 93. Initial ABG was showing severe metabolic acidosis with respiratory compensation per bolivar formula. CT of the abdomen is showing dense bilateral staghorn calculi without hydronephrosis and a right ureteral stent in place. Renal ultrasound was also showing multiple bilateral renal calculi with no hydronephrosis. Patient was coursing with urosepsis for which was started on Levophed and phenylephrine. Patient was also started on IV Flagyl and ceftriaxone. Nephrology was consulted and the patient was admitted for further assessment and management. Hospital course: Initially patient was diagnosed with septic shock likely related to pyelonephritis due to staghorn calculi, treated with IV antibiotic ceftriaxone and Flagyl, pressors with Levophed and phenylephrine, continue with IV fluid as per Nephrology recommendation. Urology consultation was done for staghorn renal calculi. Over the course of hospitalization, patient's vasopressor requirement improved, off vasopressor with map greater than 65, as per Urology patient will require no PCNL and advanced stone burden management for complex stone burden in sepsis. Patient will be discharged home, advised to follow with primary care physician, and as per patient and family, patient will follow up at [facility] for further management of PCNL and advanced stone burden management. Patient agreed with the plan, we will be prescribed antibiotics ciprofloxacin for UTI and patient agreed for directly visit [facility] for further management. Patient advised to come to the emergency department again if symptom recurs or worsens. As per patient once she is discharged from here, she would likely go to [facility] or [facility]. Plan discussed with: Patient, Other (RN) My Orders My Orders Orders - FIFI NASCIMENTO Procedure Category Date Status Time Discharge DISCHARGE 01/01/25 Transmitted 16:58 Dietary Evaluation Review Recommendations by RD: Increase Calorie Intake Comments: 1) Initiate Nepro bid d/t decreased appetite. Encourage optimal PO intake 2) Refer to outpatient RD/[facility] for weight management and prediabetes education 3) Follow-up with nephrology and cardiology 4) Continue to monitor I&O, labs, and skin integrity Expected Outcomes/Goals: 1) appetite and labs to improve 2) diet to advance 3) f/u in 3-5 days Date of Service: January 01, 2025 Billing Provider: NARESH THORPE MD Common Visit Codes: [id number] INP/OBS CARE(HIGH) FIFI NASCIMENTO January 01, 2025 17:05 NARESH THORPE MD January 02, 2025 08:37
== END 2025-01-01 18:25 | disposition short-term general hospital (02) | DRG 720 ==
LOC: ER 16:14 → OVERFLOW 22:59 → ICU CENTRL 12-28 03:17 → TELE-CENTR 12-31 16:08
PROVIDERS: ADMIT Student in an Organized Health Care Education/Training Program; ATTEND Student in an Organized Health Care Education/Training Program
PROC: 02HV33Z Insertion of Infusion Device into Superior Vena Cava, Percutaneous Approach (ICD-10-PCS; principal; 2024-12-27)
DX: A41.59 Other Gram-negative sepsis (principal); N17.0 Acute kidney failure with tubular necrosis; R65.21 Severe sepsis with septic shock; G93.41 Metabolic encephalopathy; E87.1 Hypo-osmolality and hyponatremia; E87.20 Acidosis, unspecified; N10 Acute pyelonephritis; E11.22 Type 2 diabetes mellitus with diabetic chronic kidney disease; A09 Infectious gastroenteritis and colitis, unspecified; Z20.822 Contact with and (suspected) exposure to COVID-19; Z68.35 Body mass index [BMI] 35.0-35.9, adult; K80.20 Calculus of gallbladder without cholecystitis without obstruction; N18.9 Chronic kidney disease, unspecified; E66.01 Morbid (severe) obesity due to excess calories; E86.0 Dehydration; I44.1 Atrioventricular block, second degree; Z83.3 Family history of diabetes mellitus; Z87.440 Personal history of urinary (tract) infections; Z86.11 Personal history of tuberculosis; Z86.19 Personal history of other infectious and parasitic diseases
CPT/HCPCS: 36415; 36556; 36600; 71045; 71250; 74176; 76775; 78707; 80048; 80053; 80061; 81001; 82306; 82570; 82607; 82805; 82962; 83036; 83605; 83735; 83880; 83970; 84100; 84156; 84300; 84439; 84443; 84484; 85025; 85610; 85730; 87040; 87081; 87086; 87088; 87186; 87426; 87804; 93005; 93306; 93971; 96361; 96374; 97163; 99291; G0378; J2405; J2470; J3490